=== PATIENT | male | born 1950 | race Caucasian/White ===

== ENCOUNTER 2021-12-24 06:25 | Inpatient (IN) | payer OTHER, MEDICAID ==
[~2021-12-24] VITALS: Ht 172.7 cm; Wt 77.3 kg
[2021-12-24 06:30] VITALS: BP 144/80
--- NOTE | 2021-12-24 06:30 | NUR ---
PT JP ALS. TAKEN TO BED 5
--- NOTE | 2021-12-24 06:39 | NUR ---
PT MOVED TO ER BED 1
[2021-12-24] MEDS ORDERED: methylPREDNISolone SS 125 MG/2 ML VIAL IVP ONE (06:55)
[2021-12-24] MEDS ORDERED: ALBUTEROL 0.083% 2.5 MG/3 ML NEBU INH ONE (06:55)
[2021-12-24] MEDS ORDERED: NACL 0.9% 1,000 ML IV SCH ×2 (06:55→11:40)
[2021-12-24] MEDS ORDERED: PIPERACILLIN/TAZOBACTAM 3.375 GM in DEXTROSE 5% 50 ML IV ONE (06:55)
[2021-12-24] MEDS ORDERED: IPRATROPIUM 0.02% 0.5 MG/2.5 ML NEBU INH ONE (06:55)
--- NOTE | 2021-12-24 07:27 | NUR ---
Pt report received from DARYL Martinez . Transfer of care at this time.
[2021-12-24 07:31] LABS: BASOPHILS % (AUTO) 0.2 % (0.0-2.0); EOSINOPHILS % (AUTO) 0.1 % (0.0-4.0); HEMATOCRIT 48.9 % (36-52); HEMOGLOBIN 16.2 g/dL (12.0-18.0); LYMPHOCYTES # (AUTO) 0.8 K/uL (2.0-11.5); LYMPHOCYTES % (AUTO) 3.8 % (20.5-51.1); MEAN CORPUSCULAR HEMOGLOBIN 28 pg (27-31); MEAN CORPUSCULAR HGB CONC 33 g/dL (33-37); MEAN CORPUSCULAR VOLUME 85.3 fL (80-94); MONOCYTES # (AUTO) 1.8 K/uL (0.8-1.0); MONOCYTES % (AUTO) 8.7 % (1.7-9.3); NEUTROPHILS # (AUTO) 17.8 K/uL (1.8-7.7); NEUTROPHILS % (AUTO) 87.2 % (42.2-75.2); PLATELET COUNT (AUTO) 276 K/uL (140-450); RED BLOOD CELL COUNT(AUTO) 5.73 MIL/uL (4.20-6.10); RED CELL DISTRIBUTION WIDTH 16.6 % (11.6-13.7); WHITE BLOOD COUNT (AUTO) 20.4 K/uL (4.8-10.8)
[2021-12-24] MEDS ORDERED: PIPERACILLIN/TAZOBACTAM 3.375 GM VIAL IV ONE ×2 (07:33→13:15)
[2021-12-24 07:36] LABS: ALBUMIN 2.5 g/dL (3.4-5.0); ANION GAP 6.4 (8-16); ASPARTATE AMINOTRANSFERASE 16 U/L (15-37); CARBON DIOXIDE 38.2 mmol/L (21-32); CHLORIDE 97 mmol/L (98-107); CREATININE 0.9 mg/dL (0.6-1.3); GLUCOSE 182 mg/dL (74-106); SODIUM SERUM 135 mmol/L (136-145); TOTAL BILIRUBIN 0.5 mg/dL (0.0-1.0); UREA NITROGEN, BLOOD 37 mg/dL (7-18)
--- NOTE | 2021-12-24 07:45 | NUR ---
Report given to AM shift nurse Lucinda BRITO. AM shift nurse Lucinda BRITO verbalized understanding of report, no further questions.
[2021-12-24 07:50] LABS: POTASSIUM 6.6 mmol/L (3.5-5.1)
[2021-12-24] MEDS ORDERED: ACETAMINOPHEN 650 MG/20.3 ML UDC PO ONE (07:55)
--- NOTE | 2021-12-24 07:59 | NUR ---
xray at bedside
[2021-12-24] MEDS ORDERED: SODIUM BICARBONATE 8.4% PFS 50 MEQ/50 ML SYR IVP ONE (08:10)
[2021-12-24] MEDS ORDERED: DEXTROSE 50% 50 ML SYR IVP ONE (08:10)
[2021-12-24] MEDS ORDERED: SODIUM ZIRCONIUM CYCLOSILICATE 10 GM POWD.PACK GT ONE (08:10)
[2021-12-24] MEDS ORDERED: INSULIN REGULAR, HUMAN 100 UNIT/ML VIAL IVP ONE (08:10)
[2021-12-24 08:25] LABS: PROTHROMBIN TIME 10.9 secs (10.8-13.4)
[2021-12-24 08:25] LABS: APPEARANCE,URINE CLEAR (CLEAR); BILIRUBIN,URINE NEGATIVE (NEGATIVE); BLOOD, URINE 2+ (NEGATIVE); COLOR,URINE YELLOW (YELLOW); LEUKOCYTE ESTERASE ,URINE NEGATIVE (NEGATIVE); NITRITE, URINE NEGATIVE (NEGATIVE); UGLUCOSE NEGATIVE (NEGATIVE)
--- NOTE | 2021-12-24 09:01 | NUR ---
INF SWAB WALKED TO LAB
[2021-12-24 10:16] LABS: RBC,URINE 11-20 (MOD) /HPF (0-5); WBC,URINE 0-5 /HPF (0-5)
[2021-12-24] MEDS ORDERED: ZOLPIDEM 5 MG TAB PO PRN (10:35)
[2021-12-24] MEDS ORDERED: guaiFENesin DM 200/20 MG-10 ML 10 ML UDC PO PRN (10:35)
[2021-12-24] MEDS ORDERED: POTASSIUM CHLORIDE 10 MEQ TABER PO PRN (10:35)
[2021-12-24] MEDS ORDERED: DOCUSATE SODIUM 100 MG GELCAP PO PRN (10:35)
[2021-12-24] MEDS ORDERED: ACETAMINOPHEN 325 MG TAB PO PRN (10:35)
--- NOTE | 2021-12-24 11:17 | NUR ---
PT MOVED TO ER BED 2
[2021-12-24] MEDS ORDERED: VANCOMYCIN PER PHARMACY MC PRN (11:25)
[2021-12-24] MEDS ORDERED: INTUBATION KIT MC ONE (11:30)
--- NOTE | 2021-12-24 11:30 | NUR ---
INTUBATION PERFORMED BY FOLLOWED BY BRONCHOSCOPY, SPUTUM SENT TO LAB AND ABG DONE DONE. CURRENT VENT SETTING ARE ACVC TV450, RR18, +5, 100%, ALARMS ARE SET AND AUDIBLE , WHEELS ARE LOCKED AND AMBUBAG AT BEDSIDE.
--- NOTE | 2021-12-24 11:30 | NUR ---
DR PUENTE AT BEDSIDE, DECIDED TO INTUBATE PT
[2021-12-24] MEDS ORDERED: PROPOFOL 200 MG/20 ML VIAL IV ONE (11:32)
[2021-12-24] MEDS ORDERED: PROPOFOL 1000 MG/100 ML PREMIX 100 ML IV ONE (11:34)
[2021-12-24] MEDS ORDERED: ROCURONIUM 50 MG/5 ML VIAL IV SCH (11:40)
[2021-12-24] MEDS ORDERED: ETOMIDATE 20 MG/10 ML VIAL IVP SCH (11:40)
[2021-12-24] MEDS: PROPOFOL 1000 MG/100 ML PREMIX 100 ML IV PRN (11:45)
[2021-12-24] MEDS ORDERED: CALCIUM GLUC 1 GM/50 mL NS BAG 0 ML IV ONE (11:56)
[2021-12-24] MEDS ORDERED: CALCIUM GLUCONATE 10% 1,000 MG in NACL 0.9% 50 ML IV SCH (12:00)
[2021-12-24] MEDS ORDERED: SODIUM POLYSTYRENE 15 GM/60 ML UDBTL PO SCH (12:00)
--- NOTE | 2021-12-24 12:01 | NUR ---
1137-DR PUENTE, RT AND PRIMARY NURSE AT BEDSIDE FOR INTUBATION 1138- 10MG ETOMIDATE GIVEN IVPUSH (VERIFIED BY 2ND RN) 1139-50MG ROCURONIUM GIVEN IPUSH (VERIFIED BY 2ND RN) 1140- INTUBATED- ET TUBE SIZE 8, 24" @LIP +COLOR CHANGE. RECEIVED VERBAL ORDER OF PROPOFOL AT 5MCG AND LEVO 4MG PRN
--- NOTE | 2021-12-24 12:04 | NUR ---
RAD AT BEDSIDE FOR VERIFICATION
--- NOTE | 2021-12-24 12:21 | NUR ---
LAB AT BEDSIDE
--- NOTE | 2021-12-24 12:22 | NUR ---
Pt report given to DARYL Forte. Transfer of care at this time.
--- NOTE | 2021-12-24 12:25 | NUR ---
assumed care of a 71/m. s/p intubation - vent settings as follows: ACVC [id number]/peep5. pending icu bed.
[2021-12-24] MEDS: methylPREDNISolone SS 125 MG/2 ML VIAL IVP SCH ×2 (12:41→19:31)
[2021-12-24] MEDS ORDERED: ALBUTEROL SULFATE/IPRATROPIU 3 ML SOL IH SCH (12:55)
[2021-12-24] MEDS ORDERED: NOREPINEPHRINE 4 MG in DEXTROSE 5% 250 ML IV SCH (13:05)
[2021-12-24 13:13] LABS: BASOPHILS % (AUTO) 0.1 % (0.0-2.0); HEMOGLOBIN 14.5 g/dL (12.0-18.0); LYMPHOCYTES # (AUTO) 0.6 K/uL (2.0-11.5); LYMPHOCYTES % (AUTO) 2.9 % (20.5-51.1); MEAN CORPUSCULAR HEMOGLOBIN 28 pg (27-31); MEAN CORPUSCULAR HGB CONC 32 g/dL (33-37); MEAN CORPUSCULAR VOLUME 85.9 fL (80-94); MONOCYTES # (AUTO) 1.4 K/uL (0.8-1.0); MONOCYTES % (AUTO) 6.6 % (1.7-9.3); NEUTROPHILS # (AUTO) 19.6 K/uL (1.8-7.7); NEUTROPHILS % (AUTO) 90.4 % (42.2-75.2); PLATELET COUNT (AUTO) 206 K/uL (140-450); RED BLOOD CELL COUNT(AUTO) 5.23 MIL/uL (4.20-6.10); RED CELL DISTRIBUTION WIDTH 16.1 % (11.6-13.7); WHITE BLOOD COUNT (AUTO) 21.6 K/uL (4.8-10.8)
[2021-12-24] MEDS: PIPERACILLIN/TAZOBACTAM 3.375 GM in DEXTROSE 5% 50 ML IV SCH ×2 (13:22→21:48)
[2021-12-24 13:34] LABS: PROTHROMBIN TIME 10.9 secs (10.8-13.4)
[2021-12-24] MEDS: SODIUM BICARBONATE 8.4% 150 MEQ in DEXTROSE 5% 1,000 ML IV SCH (13:39)
[2021-12-24 13:43] LABS: MAGNESIUM 2.1 mg/dL (1.8-2.4); THYROID STIMULATING HORMONE 0.76 uIU/mL (0.34-3.74)
--- NOTE | 2021-12-24 13:45 | NUR ---
at or around this time patient was transported to CT via gurney with this RN, 2 RCPs, and pavan kay. on continous cardiac monitoring.
[2021-12-24 13:48] LABS: ALBUMIN 2.1 g/dL (3.4-5.0); ANION GAP 7.6 (8-16); ASPARTATE AMINOTRANSFERASE 15 U/L (15-37); CARBON DIOXIDE 36.3 mmol/L (21-32); CHLORIDE 101 mmol/L (98-107); CREATININE 0.8 mg/dL (0.6-1.3); GLUCOSE 231 mg/dL (74-106); POTASSIUM 4.9 mmol/L (3.5-5.1); SODIUM SERUM 140 mmol/L (136-145); TOTAL BILIRUBIN 0.5 mg/dL (0.0-1.0); UREA NITROGEN, BLOOD 34 mg/dL (7-18)
--- NOTE | 2021-12-24 14:00 | NUR ---
TRANSFERRED PT TO AND FROM CT WITH NO COMPLICATIONS. HES BACK ON CURRENT VENT SETTING VC TV450,RR18,+,100%. ALARMS ARE SET AND AUDIBLE,VENT PLUGGED INTO RED OUTLET. AMBUBAG AT BEDSIDE.
--- NOTE | 2021-12-24 14:20 | NUR ---
returned from CT. reattached to bedside monitor. remains in critical condition. intubated, sedated.
--- NOTE | 2021-12-24 14:20 | NUR ---
PICC nurse at bedside.
--- NOTE | 2021-12-24 14:30 | NUR ---
repositioned in bed, pt remains intubated/sedated. no new changes in condition.
--- NOTE | 2021-12-24 15:05 | NUR ---
RT CALLED DR. HYDE, RECIEVED VERBAL ORDERS FOR DUONEB 3ML AND INCREASE THE RATE FROM 18 TO 22 AND TO GET AN ABG. WILL FOLLOW UP WITH DR HYDE ON ABG RESULTS.
--- NOTE | 2021-12-24 15:07 | NUR ---
successful PICC insertion - confirmation via xray.
[2021-12-24 15:15] VITALS: BP 104/58
--- NOTE | 2021-12-24 15:28 | NUR ---
DC PLANNIN YRS OLD MALE PATIENT WAS ADMITTED FROM [facility] WITH A DX OF SEPSIS. PATIENT HAS A HX OF COPD ,DEMENTIA HEART FAILURE DYSPHAGIA ENCEPHALOPATHY AND SCHIZOPHRENIA. INTUBATED IN THE ER ADMITTED IN ICU CXR SHOWED PULMONARY VASCULAR CONGESTION RAPID COVID TEST NEGATIVE. INFLUENZA B POSITIVE ADMINISTERED IVF, IV ABX ZOSYN AND VANCOMYCIN. CONSULTED WITH SURGEON ,PULMO, CARDIO AND ID. DC PLAN TO RETURN TO [facility] WHEN STABLE CM TO FOLLOW Addendum: 01/06/22 at 1018 by Haritha Carrillo RN DC PLANNING: PATIENT IS ACCEPTED AT [facility] CAN GO TO ROOM 222A # TO GIVE REPORT [phone] ARRANGED TRANSPORT WITH [employer] [employer] [facility] TIME 2 PM. NOTIFIED BEBE BRITO. Addendum: 01/06/22 at 1037 by Haritha Carrillo RN DC PLANNING CALLED [employer] SPOKE WITH TERESO ARRANGED TRANSPORT RES NUMBER [id number] WILL CALL BACK WITH IN 30-40 MIN TO CONFIRM TRANSPORT IF NOT PLS CALL [phone] CM TO FOLLOW Addendum: 01/06/22 at 1049 by Haritha Carrillo RN DC PLANNING: RECEIVED A CALL FROM [facility] SPOKE WITH EDITH HURD [employer] WILL VIDEO RECORDER MECHANIC PATIENT AT 2:30 PM. NOTIFIED BEBE BRITO
[2021-12-24] MEDS ORDERED: VANCOMYCIN HCL 1.25 GM in DEXTROSE 5% 250 ML IV SCH (16:00)
--- NOTE | 2021-12-24 16:10 | NUR ---
PLAY BACK OPERATOR at bedside -- vent settings changed. new vent settings as follows: [id number]/450tv/22rate/5peep. pt tolerating vent settings without incident.
--- NOTE | 2021-12-24 16:29 | NUR ---
reposistioned in bed, no acute changes in condition
--- NOTE | 2021-12-24 16:30 | NUR ---
RT FOLLOWED UP ABG RESULTS TO DR. MORRISON, VERBAL PHONE ORDER GIVEN TO INCREASE RATE TO 28 FROM 22 AND INCREASE TIDAL VOLUME FROM 450 TO 500. PT TOLERATED CHANGE WELL AND WILL OBTAIN A FOLLOW UP AGE IN MORNING.
--- NOTE | 2021-12-24 16:31 | NUR ---
all care transferred to DARYL Sarmiento.
--- NOTE | 2021-12-24 16:31 | NUR ---
REPORT RECEIVED FROM KALEN BRITO, ASSUMED CARE AT THIS TIME. PT IS TOLERATING VENT WELL AT THIS TIME. RECEIVED PT ON PROPOFOL 10MG/KG/MIN WITH THE RASS SCORE OF -3. PT ALSO HAS SODIUM BICARB RUNNING @80ML/HR WITH VANCO RUNNING. PT ON CARDIAC/OXYGEN MONITOR.
[2021-12-24 16:45] VITALS: BP 118/55
--- NOTE | 2021-12-24 17:43 | NUR ---
P.T. NOTES HOLD P.T. EVAL, Pt INTUBATED; FF UP WHEN APPROPRIATE.
--- NOTE | 2021-12-24 18:00 | NUR ---
0.83 ALBUTEROL VERBALLY CANCELLED PER VERBAL [facility], PER DR. HYDE. PT WILL CONTINUE TO RECEIVE DUONEB 3MG Q4HR PER ORDER.
--- NOTE | 2021-12-24 18:26 | NUR ---
PT SPO2 DROPPED TO 40% ON VENT. RT AT BEDSIDE. PTS MOUTH AND ET TUBE SUCTIONED AND SPO2 IMPROVED TO 100%. PT TOLERATING VENT AT THIS TIME. PT REPOSITIONED AND NEW BLANKET APPLIED.
--- NOTE | 2021-12-24 18:45 | NUR ---
ASSISTED IN TRANSPORT OF PATIENT FROM ER BED #2 TO ICU BED #8. VENTILATOR IS PLUGGED INTO RED OUTLET, 8.0 ET TUBE IS PATENT AND SECURED 24CM AT THE LIP, BMV IN ROOM. WILL CONTINUE TO MONITOR
[2021-12-24] MEDS ORDERED: MULT-1640 PO (19:12)
[2021-12-24] MEDS ORDERED: ALBU3SOL83 IH (19:12)
[2021-12-24] MEDS ORDERED: VALP-22 GT (19:12)
[2021-12-24] MEDS ORDERED: SYN.05 PO (19:12)
[2021-12-24] MEDS ORDERED: LACT10SO86 PO (19:12)
[2021-12-24] MEDS ORDERED: FURO-572 PO (19:12)
[2021-12-24] MEDS ORDERED: FAMO-90 PO (19:12)
[2021-12-24] MEDS ORDERED: SENN-74 PO (19:12)
[2021-12-24] MEDS ORDERED: CLON0.5T PO (19:12)
[2021-12-24] MEDS ORDERED: BUDE1AER IH (19:12)
[2021-12-24] MEDS ORDERED: CARV3.12 PO (19:12)
[2021-12-24] MEDS ORDERED: QUET200T PO (19:12)
[2021-12-24] MEDS ORDERED: ASCO500T95 PO (19:12)
[2021-12-24] MEDS ORDERED: QUET25TA PO (19:12)
--- NOTE | 2021-12-24 19:15 | NUR ---
REPORT GIVEN TO NARCISO BRITO, TRANSFER OF CARE AT THIS TIME.
--- NOTE | 2021-12-24 20:37 | NUR ---
TRANSFERED TO ICU 8. ATTACHED TO LAPPING MACHINE SET UP OPERATOR. ACCOMPANIED BY RT, RN, AND ERT. REPORT GIVEN TO RN
--- NOTE | 2021-12-24 20:37 | NUR ---
ADMITTED PT. FROM ER AND REPORT GIVEN BY DARYL STUART. PT. AWAKE WITH THE EYES CLOSE, RESPOND TO TACTILE STIMULI. EYES PERLL. ON ETT VENT SETTING A/C VC RATE 22, FIO2 60%, TV 500 AND PEEP 5, O2 SAT 96%. LUNGS SOUND TO BILATERAL UPPER LOBE CLEAR AND BILATERAL LOWER LOBE DIMINISHED. IV SITE, RIGHT UPPER FOREARM PICC LINE RUNNING PROPOFOL 10MCG/MIN AND SODIUM BICARB 8.4% AT 80 ML/HR (FIRST BAG). RIGHT LOWER IV 18G PERIPHERAL CAPPED AND FLUSHED. ON SINUS RHYTHM ON THE MONITOR. GT TO ABDOMINAL LEFT QUADRANT CLAMPED. ABDOMINAL SOUND HYPOACTIVE. SCHERER CATHETER PLACED IN ER, PATENT AND INTACT. URINE COLOR CLEAR, STRAW. WITH SEQUENTIAL COMPRESSION TO LOWER LEG. SKIN NOT INTACT, PICTURES TAKEN OF THE WOUNDS (PLS. SEE CHART). STARTED ON BILATERAL SOFT WRIST RESTRAINT PER MD ORDERED, SINCE PT. TRYING TO PULL OUT TUBES/LINES. REPOSITIONED AND PLACED IN COMFORTABLY. PROVIDED SAFE AND QUIET ENVIRONMENT. BEDLOCK AND PLACED BED IN THE LOWEST HEIGHT. NO S/S OF PAIN AT THIS TIME. WILL CONT. TO MONITOR.
[2021-12-24 21:00] VITALS: BP 122/60
[2021-12-24] MEDS: carvediloL 3.125 MG TAB PO SCH (21:00)
[2021-12-24] MEDS: ALBUTEROL 0.083% 2.5 MG/3 ML NEBU INH SCH ×2 (21:00→21:30)
[2021-12-24] MEDS: clonazePAM 0.5 MG TAB PO SCH (21:50)
[2021-12-24] MEDS: QUEtiapine FUMARATE 100 MG TAB PO SCH (21:52)
[2021-12-24 22:00] VITALS: BP 99/63
[2021-12-24] MEDS: OSELTAMIVIR PHOSPHATE 75 MG CAP PO SCH (22:00)
[2021-12-24 23:00] VITALS: BP 86/56
[2021-12-24] MEDS: NOREPINEPHRINE 4 MG in DEXTROSE 5% 250 ML IV PRN (23:50)
[2021-12-24] MEDS: ALBUTEROL SULFATE/IPRATROPIU 3 ML SOL IH SCH (23:56)
[2021-12-25] VITALS (28 sets, daily range): BP systolic 80–132; BP diastolic 49–79
[2021-12-25] MEDS: PROPOFOL 1000 MG/100 ML PREMIX 100 ML IV PRN (02:45)
[2021-12-25] MEDS: ALBUTEROL SULFATE/IPRATROPIU 3 ML SOL IH SCH ×4 (03:56→15:00)
[2021-12-25] MEDS: SODIUM BICARBONATE 8.4% 150 MEQ in DEXTROSE 5% 1,000 ML IV SCH (04:01)
--- NOTE | 2021-12-25 04:25 | NUR ---
LAB CAME FOR BLOOD DRAWN.
[2021-12-25] MEDS: PIPERACILLIN/TAZOBACTAM 3.375 GM in DEXTROSE 5% 50 ML IV SCH ×3 (04:40→21:37)
[2021-12-25] MEDS: methylPREDNISolone SS 125 MG/2 ML VIAL IVP SCH ×4 (06:25→17:40)
[2021-12-25] MEDS: LEVOTHYROXINE 0.05 MG TAB PO SCH (06:26)
[2021-12-25 06:53] LABS: BASOPHILS % (AUTO) 0.1 % (0.0-2.0); HEMATOCRIT 40.6 % (36-52); HEMOGLOBIN 13.4 g/dL (12.0-18.0); LYMPHOCYTES # (AUTO) 0.7 K/uL (2.0-11.5); LYMPHOCYTES % (AUTO) 4.1 % (20.5-51.1); MEAN CORPUSCULAR HEMOGLOBIN 28 pg (27-31); MEAN CORPUSCULAR HGB CONC 33 g/dL (33-37); MEAN CORPUSCULAR VOLUME 84.8 fL (80-94); MONOCYTES # (AUTO) 1.1 K/uL (0.8-1.0); MONOCYTES % (AUTO) 6.4 % (1.7-9.3); NEUTROPHILS # (AUTO) 15.8 K/uL (1.8-7.7); NEUTROPHILS % (AUTO) 89.4 % (42.2-75.2); PLATELET COUNT (AUTO) 181 K/uL (140-450); RED BLOOD CELL COUNT(AUTO) 4.78 MIL/uL (4.20-6.10); RED CELL DISTRIBUTION WIDTH 16.2 % (11.6-13.7); WHITE BLOOD COUNT (AUTO) 17.7 K/uL (4.8-10.8)
--- NOTE | 2021-12-25 07:10 | NUR ---
RECEIVED PT ON ACVC TV 500, RR22, +5, 40%. WHEELS ARE LOCKED AND PLUGGED INTO RED OUTLET, ALARMS ARE SET AND AUDIBLE, AMBUBAG AT BEDSIDE.
[2021-12-25 07:14] LABS: ANION GAP 8.9 (8-16); CARBON DIOXIDE 37.5 mmol/L (21-32); CHLORIDE 98 mmol/L (98-107); CREATININE 0.8 mg/dL (0.6-1.3); GLUCOSE 150 mg/dL (74-106); POTASSIUM 3.4 mmol/L (3.5-5.1); SODIUM SERUM 141 mmol/L (136-145); UREA NITROGEN, BLOOD 39 mg/dL (7-18)
--- NOTE | 2021-12-25 07:25 | NUR ---
ENDORSED PT. TO DAY SHIFT RN, PRESLEY. ALL QUESTIONS ANSWERED.
--- NOTE | 2021-12-25 07:30 | NUR ---
RECEIVED REPORT FROM MANAGER COMMISSION. PT IN BED WITH HOB ELEVATED. SEDATED RASS -3, ETT TO VENT AC/VC FIO2 100%, RATE 22, TV 500 PEEP 5. NO S/S OF PAIN AT THIS TIME. SINUS RHYTHM ON MONITOR. WITH ANAHI PICC RUNNING PROPOFOL AT 10MCG/KG/HR, LEVOPHED AT 2MCG, BICARB AT 80CC/HR, NS AT TKO. SCHERER CATHETER INTACT AND PATENT. GT INTACT AND PATENT, CLAMPED. FALL RISK PRECAUTIONS IN PLACE
--- NOTE | 2021-12-25 08:48 | NUR ---
PATIENT HAS BEEN SCREENED AND CATEGORIZED HIGH NUTRITION RISK. PATIENT WILL BE SEEN WITHIN 1-2 DAYS OF ADMISSION. 12/25/21-12/26/21 REVIEWED BY RENATA COYNE RD
[2021-12-25] MEDS ORDERED: PANTOPRAZOLE 40 MG TABEC PO SCH (09:00)
--- NOTE | 2021-12-25 09:15 | NUR ---
RR CHANGED FROM [address] PUENTE.
--- NOTE | 2021-12-25 09:15 | NUR ---
SEEN AND EXAMINED BY DR PUENTE
[2021-12-25] MEDS: VANCOMYCIN 1,000 MG in DEXTROSE 5% 250 ML IV SCH ×2 (09:18→21:35)
[2021-12-25] MEDS: LACTULOSE 20 GM/30 ML UDC PO SCH (09:18)
[2021-12-25] MEDS: VALPROIC ACID 250 MG/5 ML UDC GT SCH ×3 (09:19→17:39)
[2021-12-25] MEDS: OSELTAMIVIR PHOSPHATE 75 MG CAP PO SCH ×2 (09:19→21:37)
[2021-12-25] MEDS: PANTOPRAZOLE 40 MG INJ VIAL IVP SCH (09:19)
[2021-12-25] MEDS: SENNA 8.6 MG TAB PO SCH (09:19)
[2021-12-25] MEDS: clonazePAM 0.5 MG TAB PO SCH ×2 (09:20→21:48)
[2021-12-25] MEDS: FUROSEMIDE 20 MG TAB PO SCH (09:21)
[2021-12-25] MEDS: FAMOTIDINE 20 MG TAB PO SCH (09:21)
[2021-12-25] MEDS: QUEtiapine FUMARATE 25 MG TAB PO SCH (09:23)
[2021-12-25] MEDS: carvediloL 3.125 MG TAB PO SCH ×2 (09:23→21:00)
--- NOTE | 2021-12-25 09:30 | NUR ---
DUE MEDS GIVEN VIA GT, TOLERATED WELL, ORAL CARE DONE
--- NOTE | 2021-12-25 10:24 | NUR ---
WOUND CARE RE-EVALUATION NOTE: SKIN ASSESSMENT DONE WITH THIS 71 Y/O PT ADMITTED WITH INITIAL DX SOB WITH FEVER. PAST MEDICAL HISTORY OF DEMENTIA, COPD, HEART FAILURE, DYSPHAGIA, ENCEPHALOPATHY, SCHIZOPHRENIA AND SKIN SQUAMOUS CELL CARCINOMA. ALL ABOVE INFORMATION OBTAINED FROM ADMISSION H&P. PT IS INTUBATED, SKIN IS COLD AND DRY, BLE NO HAIR GROWTH, NO EDEMA. DORSAL PEDAL PULSES PRESENT AND NORMAL. CAPILLARY REFILLED <2 SEC. X 10 TOES. F/C PATENT WITH MODERATE AMOUNT BERTIN COLOR URINE OUT PUT OBSERVED. PT. ADMITTED WITH SKIN ALTERATION TO LEFT EAR AND PRESSURE INJURY TO MID BACK. PLAN OF CARE DISCUSSED WITH PRIMARY RN. COMORBIDITIES RELATED TO DELAY WOUND HEALING AND FURTHER SKIN BREAKS: BOWEL INCONTINENCE, INFECTION, DM, HEART FAILURE WITH HYPOXEMIC DECREASE TISSUE PERFUSION, DECREASE MOBILITY AND FUNCTIONAL ABILITIES, AND HOB ELEVATED THE MAJORITY OF TIMES DUE TO MEDICAL REASONS. INTEGUMENTARY: -LIPS AND ORAL MUCOSA DRY AND CLEAN. SKIN INTACT. -LEFT EAR LOCALIZED BROWN SCABS, 3X3CM , MOIST, NO DRAINAGE, NO ODOR, POSSIBLE SKIN SQUAMOUS CELL CARCINOMA. -MID BACK PRESSURE INJURY STAGE 2, 2.5X2X0.1CM, WOUND BED PINK, DRY AND NO ODOR, OLIVIA-WOUND SKIN DRY PEELING SKIN RECOMMENDATIONS: -LEFT EAR CLEANSE WITH NS, APPLY MOIST 2X2 BETADINE GAUZES AND COVER WITH ISLAND DRESSING QD AND PRN IF SOILING, OFFLOAD AREA -CLEANSE MID BACK WOUND WITH NS AND APPLY Z-GUARD COVER WITH FOAM DRESSING QD AND PRN IF SOILING -APPLY FORM DRESSING TO SACROCOCCYX Q7 DAYS AND PRN IF SOILING PREVENTION -POSITIONING: TURN AND REPOSITION PATIENT Q 2H OR SOONER USE PILLOWS TO KEEP BONY PROMINENCES FROM DIRECT CONTACT WITH SURFACES USE REPOSITIONING WEDGES TO PROVIDE 30-DEGREE ANGLE FOR SIDE LYING POSITIONS OFFLOADING OR FOAM DRESSING TO ALL TUBING TO PREVENT MEDICAL DEVICES RELATED PRESSURE INJURY -RE-EVALUATING AND MANAGING INCONTINENCE MONITOR SKIN CONDITION DURING POSITION CHANGE DO NOT MASSAGE REDNESS, BONY PROMINENCES, DO NOT USE DONUT-TYPE DEVICES FREQUENT OLIVIA-CARE AND PROVIDE BARRIER CREAMS PRN IF SOILING MOISTURE CONTROL BY OFFER BED WILDER/URINAL /ABSORBENT PAD TO WICK AND HOLD MOISTURE. KEEP SKIN DRY AND PROTECT FROM FRICTION -MANAGE FRICTION/SHEAR/MOBILITY KEEP HOB AT THE LOWEST LEVEL OF ELEVATION NO MORE THAN 30 DEGREES UNLESS OTHERWISE CONTRAINDICATED USE LIFT SHEET OR TRANSFER DEVICE TO MOVE PATIENT AND PREVENT LATERAL SHEER. CONSIDER TRAPEZE IF APPROPRIATE PROTECT HEELS, ELBOWS BONY PROMINENCES WITH SKIN BERRIES OR FOAM DRESSING IF EXPOSED TO FRICTION OFFLOAD BILATERAL HEELS BY PLACING PILLOWS UNDER CALVES AT ALL TIMES, UNLESS OTHERWISE CONTRAINDICATED -PRESSURE REDISTRIBUTION SURFACE THERAPY ROMERO ISOFLEX MATTRESS -NUTRITION: PLEASE FOLLOW RD RECOMMENDATIONS AND OFFER NUTRITION SUPPLEMENTS IF ORDERED.
--- NOTE | 2021-12-25 12:00 | NUR ---
RASS-3, NO RESPIRATORY DISTRESS, FIO2 40% ON VENT
--- NOTE | 2021-12-25 12:33 | NUR ---
PHYSICAL THERAPY NOTE: ATTEMPTED TO SEE PATIENT FOR PHYSICAL THERAPY EVALUATION HOWEVER PATIENT HAD CHANGE IN CONDITION AND IS NOW INTUBATED ICU STATUS. WILL NEED NEW ORDER WHEN PATIENT IS APPROPRIATE; CASINO FLOOR RUNNER AWARE.
[2021-12-25] MEDS: Z-GUARD PASTE TP SCH (12:41)
[2021-12-25] MEDS: FOAM DRESSING TP SCH (12:42)
[2021-12-25] MEDS: GAUZE TP SCH (12:42)
--- NOTE | 2021-12-25 14:30 | NUR ---
FLACC 0, NO SOB NOTED, WOUND CARE DONE
--- NOTE | 2021-12-25 15:05 | NUR ---
12/25/2021 RD INITIAL ASSESSMENT COMPLETED. PLEASE REFER TO NUTRITION ASSESSMENT UNDER CARE ACTIVITY FOR ESTIMATED NUTRITIONAL NEEDS. 1. RECOMMEND GLUCERNA WITH A GOAL RATE OF 60 ML/HR -START AT 10 ML/HR AND INCREASE BY 10 ML/HR Q4H TOLERATED. -FWF 250 ML Q4H 2. RECOMMEND PROSOURCE BID FOR WOUND HEALING. -WITH CONTINUOUS PROPOFOL (4.191 ML/GS=350 KCAL) AND PROSOURCE (120 KCAL ), THIS WILL PROVIDE 1958 KCAL AND 116.4 G OF PROTEIN , MEETING 82% OF ESTIMATED CALORIE NEEDS AND 97% OF PROTEIN NEEDS. 3. RD TO FOLLOW-UP IN 2-3 DAYS PATIENT IS HIGH RISK. BRADY COYNE RD
--- NOTE | 2021-12-25 15:45 | NUR ---
DC PLANNING SW OUTREACHED TO [facility] TO GATHER COLLATERAL INFORMATION. HAYLEE, [facility] DIE EQUIPMENT OPERATOR REPORTS THAT PATIENT HAS BEEN IN HALF-WAY CARE SINCE NOVEMBER 01, 2018. PATIENT IS UNDER CONSERVATORSHIP WITH [facility];SHAHANA FLORES/ MONTSERRAT FORBES [phone]. CONSERVATOR WERE MADE AWARE THAT PATIENT HAS BEEN ADMITTED TO [facility]. PATIENT IS TOTAL CARE AND IS FOLLOWED BY DR PASTRANA AT FACILITY. HAYLEE REPORTS THAT PATIENT HAS LIMITED FAMILY SUPPORT. [place] PLAN IS FOR PATIENT TO RETURN TO [facility] WHEN CLINICALLY STABLE. Addendum: 12/26/21 at 1550 by Adiel DE LOS SANTOS SHEELA WAS PROVIDED WITH COPY OF [employer] PAPERWORK VIA FAX. SHEELA PROVIDED PAPERWORK TO MEDICAL RECORDS TO UPLOAD TO PATIENT CHART.
--- NOTE | 2021-12-25 17:02 | NUR ---
TUBE FEEDING STARTED, GLUCERNA 20ML/HR WITH A GOAL OF 60ML/HR FWF 250 Q4H
[2021-12-25] MEDS: POTASSIUM CHLORIDE 20% 40 MEQ/15 ML UDC GT PRN (19:06)
[2021-12-25] MEDS: QUEtiapine FUMARATE 100 MG TAB PO SCH (21:40)
[2021-12-25] MEDS: ONDANSETRON 4 MG/2 ML VIAL IM/IVP PRN (21:55)
[2021-12-26] VITALS (27 sets, daily range): BP systolic 85–152; BP diastolic 56–87
[2021-12-26] MEDS: methylPREDNISolone SS 125 MG/2 ML VIAL IVP SCH ×3 (01:23→12:23)
[2021-12-26] MEDS: Z-GUARD PASTE TP SCH ×2 (01:23→12:25)
[2021-12-26] MEDS: ALBUTEROL SULFATE/IPRATROPIU 3 ML SOL IH SCH ×6 (05:30→23:52)
[2021-12-26 06:03] LABS: ANION GAP 6.7 (8-16); CARBON DIOXIDE 39.6 mmol/L (21-32); CHLORIDE 95 mmol/L (98-107); CREATININE 0.7 mg/dL (0.6-1.3); GLUCOSE 145 mg/dL (74-106); POTASSIUM 3.3 mmol/L (3.5-5.1); SODIUM SERUM 138 mmol/L (136-145); UREA NITROGEN, BLOOD 32 mg/dL (7-18)
[2021-12-26] MEDS: PIPERACILLIN/TAZOBACTAM 3.375 GM in DEXTROSE 5% 50 ML IV SCH ×3 (06:31→20:00)
[2021-12-26] MEDS: LEVOTHYROXINE 0.05 MG TAB PO SCH (06:32)
[2021-12-26 07:01] LABS: HEMATOCRIT 39.7 % (36-52); HEMOGLOBIN 13.2 g/dL (12.0-18.0); LYMPHOCYTES # (AUTO) 0.7 K/uL (2.0-11.5); LYMPHOCYTES % (AUTO) 4.4 % (20.5-51.1); MEAN CORPUSCULAR HEMOGLOBIN 28 pg (27-31); MEAN CORPUSCULAR HGB CONC 33 g/dL (33-37); MEAN CORPUSCULAR VOLUME 83.4 fL (80-94); MONOCYTES # (AUTO) 0.8 K/uL (0.8-1.0); MONOCYTES % (AUTO) 5.2 % (1.7-9.3); NEUTROPHILS # (AUTO) 14.4 K/uL (1.8-7.7); NEUTROPHILS % (AUTO) 90.4 % (42.2-75.2); PLATELET COUNT (AUTO) 213 K/uL (140-450); RED BLOOD CELL COUNT(AUTO) 4.77 MIL/uL (4.20-6.10); WHITE BLOOD COUNT (AUTO) 15.9 K/uL (4.8-10.8)
--- NOTE | 2021-12-26 07:15 | NUR ---
Opening Received report on pt. Pt intubated, sedated with diprivan. Pt also with bilateral wrist restraints for safety. On levophed drip. Pt receiving tube feeding at rate of 40 ml/hr. Rahman in place draining urine to gravity.
[2021-12-26] MEDS: VANCOMYCIN 1,000 MG in DEXTROSE 5% 250 ML IV SCH ×2 (09:07→20:53)
[2021-12-26] MEDS: SENNA 8.6 MG TAB PO SCH (09:08)
[2021-12-26] MEDS: PANTOPRAZOLE 40 MG INJ VIAL IVP SCH (09:08)
[2021-12-26] MEDS: carvediloL 3.125 MG TAB PO SCH ×2 (09:09→21:00)
[2021-12-26] MEDS: VALPROIC ACID 250 MG/5 ML UDC GT SCH ×3 (09:09→16:06)
[2021-12-26] MEDS: LACTULOSE 20 GM/30 ML UDC PO SCH (09:09)
[2021-12-26] MEDS: clonazePAM 0.5 MG TAB PO SCH ×2 (09:11→20:55)
[2021-12-26] MEDS: FUROSEMIDE 20 MG TAB PO SCH (09:11)
[2021-12-26] MEDS: FAMOTIDINE 20 MG TAB PO SCH (09:12)
[2021-12-26] MEDS: OSELTAMIVIR PHOSPHATE 75 MG CAP PO SCH ×2 (09:13→20:53)
[2021-12-26] MEDS: QUEtiapine FUMARATE 25 MG TAB PO SCH (09:13)
--- NOTE | 2021-12-26 10:45 | NUR ---
CPAP trial initiated by RT. Liliana leyva for trial.
[2021-12-26] MEDS: GAUZE TP SCH (12:24)
[2021-12-26] MEDS: POTASSIUM CHLORIDE 20% 40 MEQ/15 ML UDC GT PRN (12:30)
--- NOTE | 2021-12-26 12:40 | NUR ---
Restarted diprivan drip sedation
--- NOTE | 2021-12-26 12:40 | NUR ---
Vent change back to AC/VC per Dr. Barrientos request by RT.
[2021-12-26] MEDS: PROPOFOL 1000 MG/100 ML PREMIX 100 ML IV PRN (14:03)
--- NOTE | 2021-12-26 16:00 | NUR ---
Pt noted with BM, cleaned pt, administered CHG bath, wound dressing change done.
[2021-12-26] MEDS: MORPHINE SULFATE 2 MG/ML SYR IVP PRN (16:06)
[2021-12-26] MEDS: methylPREDNISolone SS 40 MG/ML VIAL IVP SCH ×2 (17:52→23:55)
--- NOTE | 2021-12-26 18:51 | NUR ---
Close/Endorsement Pt in no signs of acute pain or distress, remains sedated with diprivan and remains on levophed drip for BP support. Will endorse plan of care to oncoming RN.
--- NOTE | 2021-12-26 19:45 | NUR ---
RECEIVED BEDSIDE REPORT FROM DAY SHIFT NURSE, ASSUMED CARE. PT IN SEMI FOWLERS, SEDATED RASS -3, IN NO APPARENT ACUTE DISTRESS. ETT TO VENT ON ACVC SETTINGS, RATE 18, FIO2 35%, PEEP 5, O2 SAT 94%. G-TUBE FEEDING RUNNING GLUCERNA 1.2 AT 60 ML/HR WITH RESIDUAL OF 100 ML, PUT TUBE FEEDING ON HOLD AT THIS TIME. SCHERER CATHETER PRESENT WITH VISIBLE CLEAR YELLOW URINE DRAINING. ANAHI PICC LINE PRESENT WITH NO SIGNS OF INFECTION AROUND DRESSING SITE, RUNNING PROPOFOL AT 20 MCG/KG/MIN AND LEVOPHED AT 1 MCG/MIN. 18 G ON R FOREARM PRESENT, FLUSHED AND PATENT. SKIN NON INTACT, PLEASE SEE WOUND ASSESSMENT NOTES. PT CURRENTLY ON BILATERAL SOFT WRIST RESTRAINTS WITH NO INJURIES NOTED. ALL SAFETY MEASURES IN PLACE, WILL CONTINUE TO CLOSELY MONITOR AND FOLLOW POC.
[2021-12-26] MEDS: QUEtiapine FUMARATE 100 MG TAB PO SCH (20:53)
--- NOTE | 2021-12-26 21:00 | NUR ---
SCHEDULED MEDICATIONS ADMINISTERED, PT TOLERATED WELL IN NO APPARENT ACUTE DISTRESS. DID NOT ADMINISTERED SCHEDULED COREG DUE TO PT CURRENTLY ON LEVOPHED DRIP. ORAL VAP CARE RENDERED. WILL CONTINUE TO CLOSELY MONITOR.
[2021-12-27] VITALS (28 sets, daily range): BP systolic 94–150; BP diastolic 55–95
--- NOTE | 2021-12-27 | NUR ---
PT REPOSITIONED. PT IN NO APPARENT ACUTE DISTRESS, CONTINUES ETT TO VENT WITH FIO2 AT 35%, PROPOFOL CONTINUES INFUSING AT 20 MCG/KG/MIN AND LEVOPHED AT 1 MCG/MIN. VSS. BILATERAL SOFT WRIST RESTRAINTS PRESENT WITH NO SIGNS OF INJURY ON WRISTS OR ARMS. ALL SAFETY MEASURES IN PLACE, WILL CONTINUE TO CLOSELY MONITOR AND FOLLOW POC.
[2021-12-27] MEDS: Z-GUARD PASTE TP SCH ×2 (01:00→12:46)
[2021-12-27] MEDS: PROPOFOL 1000 MG/100 ML PREMIX 100 ML IV PRN ×3 (02:10→21:47)
--- NOTE | 2021-12-27 02:20 | NUR ---
PT IN NO ACUTE DISTRESS WITH NO SIGNS OF DISCOMFORT. RE-CHECKED G TUBE RESIDUAL WITH 0 ML, STARTED GLUCERNA TUBE FEEDING AGAIN AT 30 ML/HR, WILL CONTINUE TO MONITOR, ASSESS, AND INCREASE RATE NECESSARY.
[2021-12-27] MEDS: ALBUTEROL SULFATE/IPRATROPIU 3 ML SOL IH SCH ×6 (04:09→23:07)
--- NOTE | 2021-12-27 05:00 | NUR ---
PT IN NO ACUTE DISTRESS, REPOSITIONED AND PROVIDED COMFORT MEASURES. CONTINUES ON PROPOFOL RUNNING AT 20 MCG/KG/MIN AND LEVOPHED AT 0.5 MCG/MIN. CONTINUES ON BILATERAL SOFT WRIST RESTRAINTS WITH NO SIGNS OF INJURIES AROUND WRIST OR ARMS. ALL SAFETY MEASURES IN PLACE, WILL CONTINUE TO CLOSELY MONITOR AND FOLLOW POC.
[2021-12-27 06:07] LABS: HEMATOCRIT 40.6 % (36-52); HEMOGLOBIN 13.6 g/dL (12.0-18.0); LYMPHOCYTES # (AUTO) 0.6 K/uL (2.0-11.5); MEAN CORPUSCULAR HEMOGLOBIN 28 pg (27-31); MEAN CORPUSCULAR HGB CONC 34 g/dL (33-37); MEAN CORPUSCULAR VOLUME 83.4 fL (80-94); MONOCYTES # (AUTO) 0.4 K/uL (0.8-1.0); MONOCYTES % (AUTO) 3.3 % (1.7-9.3); NEUTROPHILS # (AUTO) 11.1 K/uL (1.8-7.7); NEUTROPHILS % (AUTO) 91.7 % (42.2-75.2); PLATELET COUNT (AUTO) 209 K/uL (140-450); RED BLOOD CELL COUNT(AUTO) 4.87 MIL/uL (4.20-6.10); RED CELL DISTRIBUTION WIDTH 16.5 % (11.6-13.7); WHITE BLOOD COUNT (AUTO) 12.1 K/uL (4.8-10.8)
[2021-12-27] MEDS: LEVOTHYROXINE 0.05 MG TAB PO SCH (06:14)
[2021-12-27] MEDS: PIPERACILLIN/TAZOBACTAM 3.375 GM in DEXTROSE 5% 50 ML IV SCH ×3 (06:15→20:20)
[2021-12-27] MEDS: methylPREDNISolone SS 40 MG/ML VIAL IVP SCH ×4 (06:15→23:53)
[2021-12-27 06:35] LABS: ANION GAP 4.3 (8-16); CARBON DIOXIDE 40.1 mmol/L (21-32); CHLORIDE 98 mmol/L (98-107); CREATININE 0.7 mg/dL (0.6-1.3); GLUCOSE 137 mg/dL (74-106); POTASSIUM 3.4 mmol/L (3.5-5.1); SODIUM SERUM 139 mmol/L (136-145); UREA NITROGEN, BLOOD 31 mg/dL (7-18)
--- NOTE | 2021-12-27 07:15 | NUR ---
PT REPORT GIVEN TO DAY SHIFT NURSE. PT IN NO ACUTE DISTRESS.
--- NOTE | 2021-12-27 07:15 | NUR ---
Received pt RASS -3, ETT to vent settings AC VC TV 500, rate 18, PEEP 5, and FiO2@35%. Sinus rhythm on monitor. G-tube intact and infusing Glucerna 1.2 @30ml/hr with free water flush 250 Q4H. Rahman catheter intact and draining to bedside drainage. PICC line on right upper arm intact and infusing Propofol @20mcg/kg/min, levophed @ 1mcg/min, and NS @TKO. Safety precautions in place.
--- NOTE | 2021-12-27 07:35 | NUR ---
Reported critical CO2 lab to Dr. Barrientos. No new orders at this time.
[2021-12-27] MEDS: SENNA 8.6 MG TAB PO SCH (08:45)
[2021-12-27] MEDS: FAMOTIDINE 20 MG TAB PO SCH (08:45)
[2021-12-27] MEDS: OSELTAMIVIR PHOSPHATE 75 MG CAP PO SCH ×2 (08:45→20:20)
[2021-12-27] MEDS: QUEtiapine FUMARATE 25 MG TAB PO SCH (08:46)
[2021-12-27] MEDS: clonazePAM 0.5 MG TAB PO SCH ×2 (08:46→20:21)
[2021-12-27] MEDS: LACTULOSE 20 GM/30 ML UDC PO SCH (08:47)
[2021-12-27] MEDS: FUROSEMIDE 20 MG TAB PO SCH (08:47)
[2021-12-27] MEDS: POTASSIUM CHLORIDE 20% 40 MEQ/15 ML UDC GT PRN (08:48)
[2021-12-27] MEDS: PANTOPRAZOLE 40 MG INJ VIAL IVP SCH (08:48)
[2021-12-27] MEDS: VALPROIC ACID 250 MG/5 ML UDC GT SCH ×3 (08:48→16:12)
[2021-12-27] MEDS: carvediloL 3.125 MG TAB PO SCH ×2 (09:00→21:00)
--- NOTE | 2021-12-27 09:14 | NUR ---
Called pharmacist Alfredo and reported Vanco trough 15.2. Per yash Fuentes to give 0900 dose of Vancocin.
[2021-12-27] MEDS: VANCOMYCIN 1,000 MG in DEXTROSE 5% 250 ML IV SCH ×2 (09:20→21:43)
--- NOTE | 2021-12-27 10:20 | NUR ---
Received report from RT Patel that patient did not tolerate CPAP trial. On CPAP for 10 minutes and back on vent settings as MD order.
--- NOTE | 2021-12-27 10:30 | NUR ---
Seen and examined by Dr. Barrientos.
[2021-12-27] MEDS: acetaZOLAMIDE sodium 500 MG VIAL IVP SCH ×2 (11:38→20:22)
[2021-12-27] MEDS: GAUZE TP SCH (12:46)
--- NOTE | 2021-12-27 15:55 | NUR ---
Seen and examined by Dr. Schwab.
--- NOTE | 2021-12-27 16:10 | NUR ---
Seen and examined by Dr. Bautista.
--- NOTE | 2021-12-27 16:48 | NUR ---
12/27/21 RD FOLLOW UP COMPLETED.PLEASE REFER TO NUTRITION ASSESSMENT UNDER CARE ACTIVITY FOR ESTIMATED NUTRITIONAL NEEDS. 1.CONTINUE GLUCERNA @ 60 ML/HR -FWF 250 ML Q4H 2.CONTINUE PROSOURCE BID TO PROMOTE WOUND HEALING. WITH CONTINUOUS PROPOFOL (8.328 ML/XK=985 KCAL) AND PROSOURCE (120 KCAL ), THIS WILL PROVIDE 2069 KCAL AND 116.4 G OF PROTEIN , MEETING 86% OF ESTIMATED CALORIE NEEDS AND 97% OF PROTEIN NEEDS; ADEQUATE. 3.RD TO FOLLOW-UP IN 3-5 DAYS PATIENT IS MODERATE RISK. BRADY COYNE RD
--- NOTE | 2021-12-27 19:15 | NUR ---
RECEIVED REPORT FROM DAY SHIFT NURSE, ASSUMED CARE. PT IN SEMI FOWLERS, SEDATED RASS -3, IN NO APPARENT ACUTE DISTRESS. ETT TO VENT ON ACVC SETTINGS, RATE 18, FIO2 35%, PEEP 5, O2 SAT 99%. G-TUBE FEEDING RUNNING GLUCERNA 1.2 AT 30 ML/HR WITH RESIDUAL OF 30 ML. SCHERER CATHETER PRESENT WITH VISIBLE CLEAR YELLOW URINE DRAINING. ANAHI PICC LINE PRESENT WITH NO SIGNS OF INFECTION AROUND DRESSING SITE, RUNNING PROPOFOL AT 20 MCG/KG/MIN AND LEVOPHED AT 1 MCG/MIN. 18 G ON R FOREARM PRESENT, FLUSHED AND PATENT. SKIN NON INTACT, PLEASE SEE WOUND ASSESSMENT NOTES. PT CURRENTLY ON BILATERAL SOFT WRIST RESTRAINTS WITH NO INJURIES NOTED. ALL SAFETY MEASURES IN PLACE, WILL CONTINUE TO CLOSELY MONITOR AND FOLLOW POC.
--- NOTE | 2021-12-27 19:22 | NUR ---
Endorsed to table games shift manager nurse Ellyn for continuity of care.
--- NOTE | 2021-12-27 20:07 | NUR ---
1845 unable to get abg. 2 rts tried.
[2021-12-27] MEDS: QUEtiapine FUMARATE 100 MG TAB PO SCH (20:22)
--- NOTE | 2021-12-27 22:51 | NUR ---
2200 ATTEMPTED ABG AGAIN. UNABLE TO GET. WILL TRY IN AM
[2021-12-28] VITALS (32 sets, daily range): BP systolic 90–132; BP diastolic 53–103
[2021-12-28] MEDS: Z-GUARD PASTE TP SCH ×2 (01:00→13:14)
--- NOTE | 2021-12-28 03:00 | NUR ---
PT CONTINUES SEDATED RASS -3, CONTINUES ON PROPOFOL AT 20 MCG/KG/MIN AND LEVOPHED AT 1 MCG/MIN IN NO APPARENT ACUTE DISTRESS. ALL SAFETY MEASURES IN PLACE, WILL CONTINUE TO CLOSELY MONITOR AND FOLLOW POC.
[2021-12-28] MEDS: ALBUTEROL SULFATE/IPRATROPIU 3 ML SOL IH SCH ×5 (03:12→22:46)
--- NOTE | 2021-12-28 04:30 | NUR ---
AM CARE PROVIDED, PT TOLERATED WELL. VAP ORAL CARE RENDERED. G TUBE RESIDUAL OF 0 ML, INCREASED GLUCERNA FEEDING TO 50 ML/HR. NUTRITIONAL SUPPLEMENT PROSOURCE ADMINISTERED PER DIETARY ORDERS. WILL CONTINUE TO CLOSELY MONITOR.
[2021-12-28] MEDS: PIPERACILLIN/TAZOBACTAM 3.375 GM in DEXTROSE 5% 50 ML IV SCH ×3 (05:09→21:35)
[2021-12-28 05:28] LABS: HEMATOCRIT 40.6 % (36-52); HEMOGLOBIN 13.4 g/dL (12.0-18.0); LYMPHOCYTES # (AUTO) 0.4 K/uL (2.0-11.5); LYMPHOCYTES % (AUTO) 4.3 % (20.5-51.1); MEAN CORPUSCULAR HEMOGLOBIN 28 pg (27-31); MEAN CORPUSCULAR HGB CONC 33 g/dL (33-37); MEAN CORPUSCULAR VOLUME 84.3 fL (80-94); MONOCYTES # (AUTO) 0.3 K/uL (0.8-1.0); MONOCYTES % (AUTO) 2.7 % (1.7-9.3); NEUTROPHILS # (AUTO) 9.7 K/uL (1.8-7.7); PLATELET COUNT (AUTO) 229 K/uL (140-450); RED BLOOD CELL COUNT(AUTO) 4.82 MIL/uL (4.20-6.10); WHITE BLOOD COUNT (AUTO) 10.4 K/uL (4.8-10.8)
[2021-12-28 05:30] LABS: ANION GAP 6.6 (8-16); CARBON DIOXIDE 36.4 mmol/L (21-32); CHLORIDE 98 mmol/L (98-107); CREATININE 0.8 mg/dL (0.6-1.3); GLUCOSE 180 mg/dL (74-106); SODIUM SERUM 138 mmol/L (136-145); UREA NITROGEN, BLOOD 34 mg/dL (7-18)
[2021-12-28] MEDS: LEVOTHYROXINE 0.05 MG TAB PO SCH (05:42)
[2021-12-28] MEDS: methylPREDNISolone SS 40 MG/ML VIAL IVP SCH ×3 (05:42→17:04)
[2021-12-28] MEDS: NOREPINEPHRINE 4 MG in DEXTROSE 5% 250 ML IV PRN (05:47)
--- NOTE | 2021-12-28 07:20 | NUR ---
RECEIVED REPORT FROM OUTDOOR ILLUMINATING ENGINEER RN NARCISO FOR CONTINUITY OF CARE. PT SEDATED ON PROPOFOL. ETT TO VENT ACVC FIO2 35%, VT 450, R 18, PEEP 5. SR ON MONITOR. ANAHI PICC INFUSING LEVO AT 1 MCG/MIN AND PROPOFOL AT 20 MCG/KG/MIN. R FA 18G IV SALINE LOCK. G TUBE IN PLACE INFUSING GLUCERNA AT 50 ML/HR WITH A GOAL OF 60. 250ML WATER FLUSH Q4H. F/C IN PLACE. GENERALIZED WEAKNESS. BILAT SOFT WRIST RESTRAINTS, NO S/S OF INJURY. RENEW AT MIDNIGHT. DROPLET PRECAUTION FOR INFLUENZA B. BED IN LOWEST POSITION, CALL LIGHT WITHIN REACH.
--- NOTE | 2021-12-28 07:26 | NUR ---
SCHEDULED ABG COMPLETED NO ADVERSE REACTIONS NOTED FOLLOWED BY [facility]
--- NOTE | 2021-12-28 07:42 | NUR ---
CALLED DR. ANNIE PADILLA AT [facility] [phone] TO REVIEW ABG SAMPLE REPORT ROBERT/EXCHANGE TO CONTACT FOREMENTIONED MD REQUIRED PATIENT INFORMATION AND CALL BACK NUMBER GIVEN
[2021-12-28] MEDS: VANCOMYCIN 1,000 MG in DEXTROSE 5% 250 ML IV SCH ×2 (08:12→21:00)
[2021-12-28] MEDS: acetaZOLAMIDE sodium 500 MG VIAL IVP SCH (08:12)
[2021-12-28] MEDS: LACTULOSE 20 GM/30 ML UDC PO SCH (08:12)
[2021-12-28] MEDS: PANTOPRAZOLE 40 MG INJ VIAL IVP SCH (08:13)
[2021-12-28] MEDS: OSELTAMIVIR PHOSPHATE 75 MG CAP PO SCH ×2 (08:13→21:37)
[2021-12-28] MEDS: FUROSEMIDE 20 MG TAB PO SCH (08:13)
[2021-12-28] MEDS: VALPROIC ACID 250 MG/5 ML UDC GT SCH ×3 (08:13→17:04)
[2021-12-28] MEDS: SENNA 8.6 MG TAB PO SCH (08:13)
[2021-12-28] MEDS: clonazePAM 0.5 MG TAB PO SCH ×2 (08:14→21:36)
[2021-12-28] MEDS: FAMOTIDINE 20 MG TAB PO SCH (08:14)
[2021-12-28] MEDS: carvediloL 3.125 MG TAB PO SCH (08:15)
[2021-12-28] MEDS: QUEtiapine FUMARATE 25 MG TAB PO SCH (08:15)
[2021-12-28] MEDS: FOAM DRESSING TP SCH (08:16)
--- NOTE | 2021-12-28 09:36 | NUR ---
SEEN AND EXAMINED BY DR. ANGULO WITH NEPHROLOGY.
--- NOTE | 2021-12-28 09:45 | NUR ---
PATIENTS MINUTE VENTILATION ALARM WAS ALARMING.THEREFORE, SUCTIONED TWICE AND LIQUID SECRETIONS WERE NOTED. BENJI OROSCO
[2021-12-28] MEDS: POTASSIUM CHLORIDE 20% 40 MEQ/15 ML UDC GT PRN (10:06)
[2021-12-28] MEDS: PROPOFOL 1000 MG/100 ML PREMIX 100 ML IV PRN ×2 (10:09→17:42)
--- NOTE | 2021-12-28 10:10 | NUR ---
K+ LEVEL 3.0, GAVE PRN K+ ELIXIR VIA G TUBE. Addendum: 12/28/21 at 1843 by Savannah Villa RN GAVE 40 MEQ ELIXIR.
--- NOTE | 2021-12-28 12:15 | NUR ---
SEEN AND EXAMINED BY DR. TORO. NO NEW ORDERS.
[2021-12-28] MEDS: GAUZE TP SCH (13:13)
--- NOTE | 2021-12-28 13:30 | NUR ---
SEEN AND EXAMINED BY DR. PADILLA. NO NEW ORDERS.
--- NOTE | 2021-12-28 13:35 | NUR ---
STABLE RESTING COMFORTABLY GOOD CHEST RISE ENDOTRACHEAL SUCTION FOR MODERATE THICK PALE YELLOW SECRETIONS AIRWAY PATENT
--- NOTE | 2021-12-28 16:45 | NUR ---
SEEN AND EXAMINED BY DR RINCON. ORDERS RECEIVED.
[2021-12-28] MEDS ORDERED: POTASSIUM CHLORIDE 10 MEQ TABER PO ONE (17:00)
--- NOTE | 2021-12-28 17:34 | NUR ---
ASSESSED G TUBE RESIDUAL, 220ML. HELD TUBE FEED FOR NOW.
[2021-12-28] MEDS ORDERED: POTASSIUM CHLORIDE 20% 40 MEQ/15 ML UDC GT ONE (17:45)
--- NOTE | 2021-12-28 17:50 | NUR ---
GAVE 40 MEQ K+ ELIXIR PER DR. RINCON ORDER, ONE TIME DOSE NOW.
--- NOTE | 2021-12-28 19:15 | NUR ---
ENDORSED REPORT TO COURT OF APPEALS JUDGE DARYL ESCOTO FOR CONTINUITY OF CARE.
--- NOTE | 2021-12-28 19:30 | NUR ---
RECEIVED REPORT FROM DAY SHIFT DARYL GHOSH. PT. NASREEN, RASS -3. ON ETT A/C VC RATE 16, FIO2 28%, TV 450 PEEP 5. SINUS RHYTHM ON THE MONITOR. IV TO RIGHT FOREARM 18G AND RIGHT UPPER FOREARM PICC LINE, NO S/S OF INFILTRATION, PATENT AND INTACT. CONT. ON PROPOFOL DRIP 25 MCG/KG/MIN AND LEVOPHED DRIP 1 MCG/MIN. CONT. ON BILATERAL SOFT WRIST RESTRAINT WITH NO S/S OF POOR CIRCULATION, NO S/S OF INJURY TO THE SITE. PT. CONT. ON FEEDING GLUCERNA 1.2 AT 50 ML/HR AND PER DAY SHIFT HELD FEEDING DUE TO GASTRIC RESIDUAL OF GREATER THAN 100. WILL CONT. TO MONITOR. REPOSITIONED PT. IN BED. PLACED IN SAFE AND QUIET ENVIRONMENT. CONT. ON DROPLET PRECAUTION DUE TO INFLUENZA B (+). WOUND TO LEFT EAR OPEN TO AIR. NO S/S OF PAIN AT THIS TIME. WILL CONT. TO MONITOR.
--- NOTE | 2021-12-28 21:30 | NUR ---
MEDICATIONS ORDERED GIVEN VIA GT. PT. GASTRIC RESIDUAL 70 ML CREAMY THICK RESIDUAL. RESUMED FEEDING GLUCERNA AT 50 ML/HR. WILL CONT. TO MONITOR.
[2021-12-28] MEDS: QUEtiapine FUMARATE 100 MG TAB PO SCH (21:37)
[2021-12-29] VITALS (32 sets, daily range): BP systolic 87–129; BP diastolic 55–74
[2021-12-29] MEDS: methylPREDNISolone SS 40 MG/ML VIAL IVP SCH ×4 (00:14→17:08)
[2021-12-29] MEDS: Z-GUARD PASTE TP SCH ×2 (01:00→12:16)
[2021-12-29] MEDS: PROPOFOL 1000 MG/100 ML PREMIX 100 ML IV PRN ×3 (02:24→21:24)
--- NOTE | 2021-12-29 04:00 | NUR ---
PT. GASTRIC RESIDUAL AT 0000, 65 ML CREAMY THICK FLUID AND 70 ML CREAMY THICK LIQUID AT THIS TIME. FEEDING GLUCERNA 50 ML INFUSING AND WILL CONT. TO MONITOR.
--- NOTE | 2021-12-29 04:20 | NUR ---
LAB CAME DRAWN CBC,BMP.
[2021-12-29 04:56] LABS: BASOPHILS % (AUTO) 0.2 % (0.0-2.0); HEMATOCRIT 39.8 % (36-52); HEMOGLOBIN 13.3 g/dL (12.0-18.0); LYMPHOCYTES # (AUTO) 0.6 K/uL (2.0-11.5); LYMPHOCYTES % (AUTO) 5.3 % (20.5-51.1); MEAN CORPUSCULAR HEMOGLOBIN 28 pg (27-31); MEAN CORPUSCULAR HGB CONC 33 g/dL (33-37); MEAN CORPUSCULAR VOLUME 83.5 fL (80-94); MONOCYTES # (AUTO) 0.6 K/uL (0.8-1.0); MONOCYTES % (AUTO) 5.9 % (1.7-9.3); NEUTROPHILS # (AUTO) 9.2 K/uL (1.8-7.7); NEUTROPHILS % (AUTO) 88.6 % (42.2-75.2); PLATELET COUNT (AUTO) 239 K/uL (140-450); RED BLOOD CELL COUNT(AUTO) 4.77 MIL/uL (4.20-6.10); RED CELL DISTRIBUTION WIDTH 16.2 % (11.6-13.7); WHITE BLOOD COUNT (AUTO) 10.4 K/uL (4.8-10.8)
[2021-12-29 04:59] LABS: ANION GAP 8.5 (8-16); CARBON DIOXIDE 32.2 mmol/L (21-32); CHLORIDE 101 mmol/L (98-107); CREATININE 0.7 mg/dL (0.6-1.3); GLUCOSE 144 mg/dL (74-106); POTASSIUM 3.7 mmol/L (3.5-5.1); SODIUM SERUM 138 mmol/L (136-145); UREA NITROGEN, BLOOD 31 mg/dL (7-18)
[2021-12-29] MEDS: PIPERACILLIN/TAZOBACTAM 3.375 GM in DEXTROSE 5% 50 ML IV SCH ×3 (05:06→21:25)
[2021-12-29] MEDS: LEVOTHYROXINE 0.05 MG TAB PO SCH (05:46)
--- NOTE | 2021-12-29 06:52 | NUR ---
CXR DONE AT THIS TIME. WILL ENDORSE TO THE NEXT SHIFT.
--- NOTE | 2021-12-29 07:15 | NUR ---
RECEIVED REPORT FROM CHIEF MEDICAL PHYSICIST DARYL ESCOTO FOR CONTINUITY OF CARE. PT SEDATED ON PROPOFOL. ETT TO VENT ACVC FIO2 35%, VT 450, R 18, PEEP 5. SR ON MONITOR, HR MID 50'S-60'S. ANAHI PICC INFUSING LEVO AT 1 MCG/MIN AND PROPOFOL AT 25 MCG/KG/MIN. R FA 18G IV SALINE LOCK, FLUSHED WITH GOOD BLOOD RETURN. G TUBE IN PLACE INFUSING GLUCERNA AT 50 ML/HR WITH A GOAL OF 60. 250ML WATER FLUSH Q4H. F/C IN PLACE, DARK BERTIN URINE. GENERALIZED WEAKNESS. BILAT SOFT WRIST RESTRAINTS, NO S/S OF INJURY. RENEW AT MIDNIGHT. DROPLET PRECAUTION FOR INFLUENZA B. BED IN LOWEST POSITION, CALL LIGHT WITHIN REACH.
--- NOTE | 2021-12-29 07:17 | NUR ---
ENDORSED PT. TO DAY SHIFT DARYL GOVEA FOR CONTINUITY OF CARE. ALL QUESTIONS ANSWERED.
[2021-12-29] MEDS: ALBUTEROL SULFATE/IPRATROPIU 3 ML SOL IH SCH ×4 (07:31→19:00)
[2021-12-29] MEDS: PANTOPRAZOLE 40 MG INJ VIAL IVP SCH (08:10)
[2021-12-29] MEDS: VANCOMYCIN 1,000 MG in DEXTROSE 5% 250 ML IV SCH (08:10)
[2021-12-29] MEDS: QUEtiapine FUMARATE 25 MG TAB PO SCH (08:11)
[2021-12-29] MEDS: VALPROIC ACID 250 MG/5 ML UDC GT SCH ×3 (08:11→17:07)
[2021-12-29] MEDS: LACTULOSE 20 GM/30 ML UDC PO SCH (08:11)
[2021-12-29] MEDS: FUROSEMIDE 20 MG TAB PO SCH (08:11)
[2021-12-29] MEDS: clonazePAM 0.5 MG TAB PO SCH ×2 (08:12→21:26)
[2021-12-29] MEDS: FAMOTIDINE 20 MG TAB PO SCH (08:13)
[2021-12-29] MEDS: OSELTAMIVIR PHOSPHATE 75 MG CAP PO SCH (08:13)
[2021-12-29] MEDS: SENNA 8.6 MG TAB PO SCH (08:13)
--- NOTE | 2021-12-29 09:35 | NUR ---
SEEN AND EXAMINED BY DR. ANGULO AT BEDSIDE. NO NEW ORDERS.
[2021-12-29] MEDS: GAUZE TP SCH (12:15)
--- NOTE | 2021-12-29 12:30 | NUR ---
TITRATED LEVO OFF. BP 109/72, MAP 88.
--- NOTE | 2021-12-29 12:51 | NUR ---
SEEN AND EXAMINED BY DR. TORO AT BEDSIDE. NO NEW ORDERS.
--- NOTE | 2021-12-29 13:02 | NUR ---
WOUND CARE DONE, UPPER BACK ISLAND DRESSING CHANGED. L EAR CLEANSED WITH IODINE AND LEFT BIOCHEMIST. PT TOLERATED WELL. TURNED AND REPOSITIONED WITH STUDENT RN.
--- NOTE | 2021-12-29 13:39 | NUR ---
SEEN AND EXAMINED BY DR. PADILLA AT BEDSIDE. ORDERS FOR CPAP TOMORROW.
--- NOTE | 2021-12-29 13:44 | NUR ---
12/29/21 RD FOLLOW UP COMPLETED PLEASE REFER TO NUTRITION ASSESSMENT UNDER CARE ACTIVITY FOR ESTIMATED NUTRITIONAL NEEDS. 1. CONTINUE GLUCERNA @ 60 ML/HR -FWF 250 ML Q4H 2. CONTINUE PROSOURCE BID TO PROMOTE WOUND HEALING. -WITH CONTINUOUS PROPOFOL (8.328 ML/KF=410 KCAL) AND PROSOURCE (120 KCAL). THIS WILL PROVIDE 2069 KCAL AND 116.4 G OF PROTEIN, MEETING 86% OF ESTIMATED CALORIE NEEDS AND 97% OF PROTEIN NEEDS; ADEQUATE. 3. RD TO FOLLOW-UP 3-5 DAYS, MODERATE RISK REVIEWED BY PATRICK MARTINEZ, KRISTEN
--- NOTE | 2021-12-29 14:05 | NUR ---
SEEN AND EXAMINED BY DR. AGARWAL AT BEDSIDE. NO NEW ORDERS.
--- NOTE | 2021-12-29 17:04 | NUR ---
TURNED AND REPOSITIONED WITH STUDENT RN. NO BM. VSS. RESTING COMFORTABLY IN BED, RESPIRATIONS EVEN AND UNLABORED.
--- NOTE | 2021-12-29 19:01 | NUR ---
ENDORSED BEDSIDE REPORT TO JEVON BRITO FOR CONTINUITY OF CARE.
--- NOTE | 2021-12-29 19:30 | NUR ---
RECEIVED REPORT FROM DAY SHIFT DARYL GHOSH. PT. NOT ALERT AND ORIENTED TO NAME, PLACE, TIME AND DATE. EYES NOT REACTIVE TO LIGHT AND ACCOMMODATION. LUNGS UPPER LOBE CLEAR AND DIMINISHED ON THE BASES. CONT. ON ETT A/C VC R 16, TV 450, FIO2 28% PEEP 5. IV TO RIGHT ARM PICC LINE, PATENT AND INTACT. INFUSING PROPOFOL DRIP AT 25 MCG/KG/MIN. SINUS RHYTHM. WITH GT FEEDING GLUCERNA 1.2 AT 50 ML/HR. SCHERER CATHETER DRAINING CLEAR YELLOW URINE. SKIN NOT INTACT, PLS. SEE WOUND ASSESSMENT. REPOSITIONED AND PLACED IN COMFORTABLY. PROVIDED SAFE AND QUIET ENVIRONMENT. ON DROPLET ISOLATION AND NO S/S OF PAIN. WILL CONT. TO MONITOR.
[2021-12-29] MEDS: QUEtiapine FUMARATE 100 MG TAB PO SCH (21:27)
[2021-12-30] VITALS (30 sets, daily range): BP systolic 92–116; BP diastolic 56–79
[2021-12-30] MEDS: methylPREDNISolone SS 40 MG/ML VIAL IVP SCH ×4 (00:41→17:03)
[2021-12-30] MEDS: Z-GUARD PASTE TP SCH ×2 (00:41→12:13)
[2021-12-30] MEDS: ALBUTEROL SULFATE/IPRATROPIU 3 ML SOL IH SCH ×6 (02:17→23:56)
[2021-12-30] MEDS: PIPERACILLIN/TAZOBACTAM 3.375 GM in DEXTROSE 5% 50 ML IV SCH ×3 (05:15→20:20)
[2021-12-30] MEDS: LEVOTHYROXINE 0.05 MG TAB PO SCH (06:03)
--- NOTE | 2021-12-30 06:25 | NUR ---
LAB CAME, DRAWN FOR BLOOD WORK AND THE CXR.
[2021-12-30 06:27] LABS: BASOPHILS % (AUTO) 0.1 % (0.0-2.0); HEMATOCRIT 39.9 % (36-52); HEMOGLOBIN 13.2 g/dL (12.0-18.0); LYMPHOCYTES # (AUTO) 0.7 K/uL (2.0-11.5); LYMPHOCYTES % (AUTO) 6.5 % (20.5-51.1); MEAN CORPUSCULAR HEMOGLOBIN 28 pg (27-31); MEAN CORPUSCULAR HGB CONC 33 g/dL (33-37); MEAN CORPUSCULAR VOLUME 83.6 fL (80-94); MONOCYTES # (AUTO) 0.7 K/uL (0.8-1.0); MONOCYTES % (AUTO) 7.1 % (1.7-9.3); NEUTROPHILS # (AUTO) 8.7 K/uL (1.8-7.7); NEUTROPHILS % (AUTO) 86.3 % (42.2-75.2); PLATELET COUNT (AUTO) 228 K/uL (140-450); RED BLOOD CELL COUNT(AUTO) 4.77 MIL/uL (4.20-6.10); RED CELL DISTRIBUTION WIDTH 16.2 % (11.6-13.7); WHITE BLOOD COUNT (AUTO) 10.1 K/uL (4.8-10.8)
[2021-12-30 06:43] LABS: ANION GAP 7.3 (8-16); CARBON DIOXIDE 34.3 mmol/L (21-32); CHLORIDE 101 mmol/L (98-107); CREATININE 0.7 mg/dL (0.6-1.3); GLUCOSE 131 mg/dL (74-106); POTASSIUM 3.6 mmol/L (3.5-5.1); SODIUM SERUM 139 mmol/L (136-145); UREA NITROGEN, BLOOD 34 mg/dL (7-18)
--- NOTE | 2021-12-30 07:10 | NUR ---
ENDORSED PT. TO DAY SHIFT, DARYL GHOSH FOR CONTINUITY OF CARE.
--- NOTE | 2021-12-30 07:15 | NUR ---
RECEIVED REPORT FROM PHYSICIAN PRACTICE CONSULTANT DARYL ESCOTO FOR CONTINUITY OF CARE. PT SEDATED ON PROPOFOL. ETT TO VENT ACVC FIO2 28%, VT 450, R 16, PEEP 5. SR ON MONITOR. ANAHI PICC INFUSING PROPOFOL AT 25 MCG/KG/MIN AND NS TKO. R FA 18G IV SALINE LOCK. G TUBE IN PLACE INFUSING GLUCERNA AT 50 ML/HR WITH A GOAL OF 60. 250ML WATER FLUSH Q4H. F/C IN PLACE, CLEAR YELLOW URINE. GENERALIZED WEAKNESS. BILAT SOFT WRIST RESTRAINTS, NO S/S OF INJURY. RENEW AT MIDNIGHT. DROPLET PRECAUTION FOR INFLUENZA B. BED IN LOWEST POSITION, CALL LIGHT WITHIN REACH.
[2021-12-30] MEDS: VALPROIC ACID 250 MG/5 ML UDC GT SCH ×3 (08:18→17:03)
[2021-12-30] MEDS: FAMOTIDINE 20 MG TAB PO SCH (08:19)
[2021-12-30] MEDS: LACTULOSE 20 GM/30 ML UDC PO SCH (08:19)
[2021-12-30] MEDS: PANTOPRAZOLE 40 MG INJ VIAL IVP SCH (08:19)
[2021-12-30] MEDS: FUROSEMIDE 20 MG TAB PO SCH (08:19)
[2021-12-30] MEDS: QUEtiapine FUMARATE 25 MG TAB PO SCH (08:19)
[2021-12-30] MEDS: clonazePAM 0.5 MG TAB PO SCH ×2 (08:20→20:20)
[2021-12-30] MEDS: SENNA 8.6 MG TAB PO SCH (08:20)
[2021-12-30] MEDS: PROPOFOL 1000 MG/100 ML PREMIX 100 ML IV PRN ×2 (08:21→19:10)
--- NOTE | 2021-12-30 08:25 | NUR ---
TUBE FEED RESIDUAL 20 ML. INCREASED FEEDING RATE TO 60 ML/HR. 250 ML FWF Q4.
--- NOTE | 2021-12-30 08:40 | NUR ---
SEEN AND EXAMINED BY DR. PADILLA, ORDERS FOR CPAP TODAY.
--- NOTE | 2021-12-30 09:30 | NUR ---
SEEN AND EXAMINED BY DR. MONTES DE OCA, NO NEW ORDERS.
--- NOTE | 2021-12-30 10:15 | NUR ---
RT AT BEDSIDE TO BEGIN CPAP TRIALS.
--- NOTE | 2021-12-30 11:36 | NUR ---
SEEN AND ASSESSED BY CORINA KELLEY. NO NEW ORDERS.
[2021-12-30] MEDS: GAUZE TP SCH (12:13)
--- NOTE | 2021-12-30 12:19 | NUR ---
TUBE FEED RESIDUAL 100 ML. CONTINUED TUBE FEED AT 60 ML/HR. GAVE PROSOURCE SUPPLEMENT.
--- NOTE | 2021-12-30 12:59 | NUR ---
PT UNABLE TO FOLLOW COMMANDS REMAINS ON SBT. NURSE AWARE.
--- NOTE | 2021-12-30 13:04 | NUR ---
PT COMPLETED 2 HOURS OF SBT TOLERATED WELL CPAP 5 PS 10 AND FIO2 28%. NURSE AWARE. PT RETURNED TO FULL SUPPORT VENTILATION. WILL CONTINUE TO MONITOR.
--- NOTE | 2021-12-30 17:05 | NUR ---
TUBE FEED RESIDUAL 100 ML. CONTINUED TUBE FEED ORDERED.
--- NOTE | 2021-12-30 19:00 | NUR ---
ENDORSED BEDSIDE REPORT TO POLICE SURGEON RN REMY FOR CONTINUITY OF CARE.
--- NOTE | 2021-12-30 19:30 | NUR ---
ASSUMED CARE OF PT.INITIAL ASSESSMENT COMPLETED. SR NOTED ON MONITOR. ETT TO VENT A/C VC MODE FIO2 28% RATE 16, PEEP 5. W/ RIGHT UPPER ARM PICC LINE, GOOD BLOOD RETURN TO BOTH PORTS. INFUSING PROPOFOL DRIP AT 25 MCG/KG/MIN. DRY WT 69.9 KG.WITH GT INTACT, 50ML RESIDUALS NOTED.ON CONTINUOUS FEEDING GLUCERNA 1.2 ORDERED.W/ SCHERER CATHETER DRAINING CLEAR YELLOW URINE,ADEQUATE AMT.ALL EXTREMITIES RIGID.FLACC 0.W/BILATERAL SOFT WRIST RESTRAINTS, NO INJURIES NOTED.FALL PRECAUTION IN PLACE.CALL LIGHT WITHIN REACH.WILL CONTINUE TO CLOSELY MONITOR PT
[2021-12-30] MEDS: QUEtiapine FUMARATE 100 MG TAB PO SCH (20:19)
--- NOTE | 2021-12-30 20:30 | NUR ---
ORAL CARE USING VAP KIT RENDERED.PT ON PROTONIX FOR GI PROPHYLAXIS AND SCD TO BLE FOR DVT PROPHYLAXIS.REPOSITIONED.
[2021-12-31] VITALS (32 sets, daily range): BP systolic 91–162; BP diastolic 55–93
--- NOTE | 2021-12-31 | NUR ---
ORAL CARE DONE.FLACC 0.REPOSITIONED.
[2021-12-31] MEDS: methylPREDNISolone SS 40 MG/ML VIAL IVP SCH ×4 (00:48→17:30)
[2021-12-31] MEDS: Z-GUARD PASTE TP SCH ×2 (00:51→13:00)
--- NOTE | 2021-12-31 02:00 | NUR ---
PTS CONDITION REMAINS UNCHANGED.STILL ETT TO VENT FIO2 28%.SECRETIONS SUCTIONED.FLACC 0.REPOSITIONED
[2021-12-31] MEDS: ALBUTEROL SULFATE/IPRATROPIU 3 ML SOL IH SCH ×5 (03:00→18:47)
--- NOTE | 2021-12-31 04:00 | NUR ---
ORAL CARE USING VAP KIT RENDERED.REPOSITIONED.FLACC 0
[2021-12-31] MEDS: PROPOFOL 1000 MG/100 ML PREMIX 100 ML IV PRN (04:15)
--- NOTE | 2021-12-31 05:00 | NUR ---
BM NOTED.MODERATE AMT OF FORMED BROWNISH STOOL NOTED.PT CLEANED.REPOSITIONED.FLACC 0
[2021-12-31] MEDS: PIPERACILLIN/TAZOBACTAM 3.375 GM in DEXTROSE 5% 50 ML IV SCH ×3 (05:01→21:13)
[2021-12-31 05:42] LABS: ANION GAP 8.2 (8-16); CARBON DIOXIDE 33.4 mmol/L (21-32); CHLORIDE 99 mmol/L (98-107); CREATININE 0.7 mg/dL (0.6-1.3); GLUCOSE 143 mg/dL (74-106); POTASSIUM 3.6 mmol/L (3.5-5.1); SODIUM SERUM 137 mmol/L (136-145); UREA NITROGEN, BLOOD 36 mg/dL (7-18)
[2021-12-31] MEDS: LEVOTHYROXINE 0.05 MG TAB PO SCH (06:05)
--- NOTE | 2021-12-31 06:27 | NUR ---
ALL DUE MEDS GIVEN.FLACC 0
[2021-12-31 06:44] LABS: BASOPHILS % (AUTO) 0.1 % (0.0-2.0); HEMATOCRIT 40.9 % (36-52); HEMOGLOBIN 13.6 g/dL (12.0-18.0); LYMPHOCYTES # (AUTO) 0.5 K/uL (2.0-11.5); LYMPHOCYTES % (AUTO) 3.8 % (20.5-51.1); MEAN CORPUSCULAR HEMOGLOBIN 28 pg (27-31); MEAN CORPUSCULAR HGB CONC 33 g/dL (33-37); MEAN CORPUSCULAR VOLUME 83.8 fL (80-94); MONOCYTES # (AUTO) 0.4 K/uL (0.8-1.0); MONOCYTES % (AUTO) 3.2 % (1.7-9.3); NEUTROPHILS # (AUTO) 11.1 K/uL (1.8-7.7); NEUTROPHILS % (AUTO) 92.9 % (42.2-75.2); PLATELET COUNT (AUTO) 251 K/uL (140-450); RED BLOOD CELL COUNT(AUTO) 4.88 MIL/uL (4.20-6.10); RED CELL DISTRIBUTION WIDTH 15.8 % (11.6-13.7)
--- NOTE | 2021-12-31 07:40 | NUR ---
CPAP/PS TRIAL WEANING DR. PADILLA (PULAR) CAME AND NOTED WEANING BEFORE (10 MINUTES DAY BEFORE YESTERDAY & 2 HOURS YESTERDAY), ORDERED TO STOP SEDATION AND DO WEANING TODAY TO EXERCISE LUNGS. 0748 HRS. PROPOFOL STOPPED AND RT PLACED PATIENT ON SBT (G.E. VENT.) +5/10 cm H20.
--- NOTE | 2021-12-31 07:45 | NUR ---
PT PLACED ON SBT CPAP 5 PS 10 FIO2 28%, BEDSIDE PT NOT READY FOR EXTUBATION DUE TO MODERATE THICK SECRETIONS. WILL CONTINUE SBT.
--- NOTE | 2021-12-31 08:00 | NUR ---
DR. MONTES DE OCA CAME AND NO ORDERS.
[2021-12-31] MEDS: VALPROIC ACID 250 MG/5 ML UDC GT SCH ×3 (08:51→17:01)
[2021-12-31] MEDS: PANTOPRAZOLE 40 MG INJ VIAL IVP SCH (08:51)
[2021-12-31] MEDS: QUEtiapine FUMARATE 25 MG TAB PO SCH (08:52)
[2021-12-31] MEDS: SENNA 8.6 MG TAB PO SCH (08:52)
[2021-12-31] MEDS: FUROSEMIDE 20 MG TAB PO SCH (08:52)
[2021-12-31] MEDS: FAMOTIDINE 20 MG TAB PO SCH (08:53)
[2021-12-31] MEDS: FOAM DRESSING TP SCH (08:53)
[2021-12-31] MEDS: LACTULOSE 20 GM/30 ML UDC PO SCH (08:53)
[2021-12-31] MEDS: clonazePAM 0.5 MG TAB PO SCH ×2 (08:54→21:09)
--- NOTE | 2021-12-31 10:00 | NUR ---
CPAP/PS OR SBT WEANING TOLERATED ABLE TO TOLERATE WEANING OF +5/10 cmH20 FOR 2 HOURS TODAY.
--- NOTE | 2021-12-31 10:40 | NUR ---
SEEN BY DR. MARTINS AT BED SIDE , PLAN TO CONTINUE HOLD DIAMOX, NO OTHER ORDER RECEIVED,
[2021-12-31] MEDS: GAUZE TP SCH (13:00)
--- NOTE | 2021-12-31 19:30 | NUR ---
REPORT GIVEN TO NIGHT DARYL MEJIA. PATIENT GIVEN PRN ACETAMINOPHEN PATIENT SQUEEZE EYES TIGHT, NOT OBEYING TO SIMPLE COMMAND OF SQUEEZE FINGERS WHEN ASKED BUT FIGHTS HARD WHEN REPOSITIONED, CLEANED STOOL, ANY PROCEDURE, & PULLS AWAY FROM RESTRAINTS. WHEN ALONE, PT. SLEEPS QUIETLY. CLEANED WOUND MID-THORACIC WITH NEW OPTIFOAM GENTLE. CPAP/PS TRIAL 2 HOURS TOLERATED TODAY. CAN RESTART PROPOFOL IF NEEDED.
--- NOTE | 2021-12-31 19:35 | NUR ---
RECEIVED REPORT FROM OFF GOING RN PT HAS HIS EYES SQUEEZED SHUT. HE'S ON THE VENTILATOR VIA ETT .MODE IS AC/VC SETTINS UVE155%.TV 450, AND PEEP5. PT IS BITING ON THE TUBE. WILL MEDICATE PT. HIS PROPOFOL IS OFF AT THIS TIME. HE HAS RFA 20 GUAGE IV WITH NS INFUSING AT A TKO RATE. HE HAS A PEG TUBE IN THE RUQ OF THE ABD INFUSING AT 60CC/HOUR AND FREE WATER 250CC Q4 HOURS
[2021-12-31] MEDS: QUEtiapine FUMARATE 100 MG TAB PO SCH (21:07)
[2021-12-31] MEDS: ONDANSETRON 4 MG/2 ML VIAL IM/IVP PRN (21:28)
[2021-12-31] MEDS: MORPHINE SULFATE 2 MG/ML SYR IVP PRN (21:29)
--- NOTE | 2021-12-31 21:30 | NUR ---
PT'S VENT IS ALARMING. SUCTIONED PT AND GIVEN ORAL CARE. PT IS BITING ON THE TUBE . PT WAS GIVEN MORPHINE 2MG AND ZOFRAN 4MG FOR A FLACC SCORE OF 6. WILL ASSESS PT IN 1 HOUR TO SEE IF IT IS EFFECTIVE.
[2022-01-01] VITALS (26 sets, daily range): BP systolic 98–132; BP diastolic 58–81
[2022-01-01] MEDS: methylPREDNISolone SS 40 MG/ML VIAL IVP SCH ×5 (00:50→23:12)
[2022-01-01] MEDS: Z-GUARD PASTE TP SCH ×3 (00:50→23:14)
[2022-01-01] MEDS: PIPERACILLIN/TAZOBACTAM 3.375 GM in DEXTROSE 5% 50 ML IV SCH ×3 (05:58→21:58)
[2022-01-01] MEDS: LEVOTHYROXINE 0.05 MG TAB PO SCH (05:59)
[2022-01-01] MEDS: ALBUTEROL SULFATE/IPRATROPIU 3 ML SOL IH SCH ×5 (08:06→23:57)
[2022-01-01] MEDS: LACTULOSE 20 GM/30 ML UDC PO SCH (09:00)
[2022-01-01] MEDS: QUEtiapine FUMARATE 25 MG TAB PO SCH (09:59)
[2022-01-01] MEDS: PANTOPRAZOLE 40 MG INJ VIAL IVP SCH (09:59)
[2022-01-01] MEDS: FUROSEMIDE 20 MG TAB PO SCH (10:00)
[2022-01-01] MEDS: SENNA 8.6 MG TAB PO SCH (10:00)
[2022-01-01] MEDS: FAMOTIDINE 20 MG TAB PO SCH (10:00)
[2022-01-01] MEDS: VALPROIC ACID 250 MG/5 ML UDC GT SCH ×3 (10:01→16:35)
[2022-01-01] MEDS: HYDROcodone/APAP 7.5/325 MG 1 TAB PO PRN (12:24)
--- NOTE | 2022-01-01 12:31 | NUR ---
DR. PADILLA CAME & SAID TO WEAN PATIENT ON CPAP/PS FOR 30 MINUTES THEN DO A BLOOD GAS & THEN INFORM HIM OF THE BLOOD GAS FOR POSSIBLE EXTUBATION.
[2022-01-01] MEDS: GAUZE TP SCH (13:00)
--- NOTE | 2022-01-01 13:50 | NUR ---
WOUND CARE RE-EVALUATION NOTE: PATIENT LYING DOWN IN BED, CONTINUES TO BE ICU STATUS. MID BACK PRESSURE ULCER STAGE II REMAINS ABOUT THE SAME, NOT WORSENING. WOUND BED PINK, DRY, NO DISCHARGE, NO ODOR. CONTINUE WITH CURRENT WOUND CARE REGIMEN. LEFT EAR LOCALIZED BROWN SCABS REMAIN THE SAME. POSSIBLE SKIN SQUAMOUS CELL CARCINOMA. NO ODOR, NO DISCHARGE. CONTINUE WITH CURRENT WOUND CARE REGIMEN.
--- NOTE | 2022-01-01 15:56 | NUR ---
EXTUBATED TUBE FEEDING STOPPED. EXTUBATED (ORAL) BY RT AROUND 1450 HRS. AND PLACED ON 6 LPM/NASAL CANNULA. KEPT ON SOFT WRIST RESTRAINTS PATIENT TRIES TO PULL ANYTHING IT CAN HOLD AND WILL FIGHT WITH MEDICAL PERSONNEL. PATIENT HAS HISTORY OF SCHIZOPHRENIA.
--- NOTE | 2022-01-01 19:10 | NUR ---
medication administered, SCANNER INOPERABLE
--- NOTE | 2022-01-01 19:46 | NUR ---
Report received from Jenn BRITO assumed pt care met him eyes open follows minimal command, answered to his name but unable incoherent at times incomprehensible verbal utterances, vitals signs stable afebrile no sign of distress noted, traces of movement in all extremities to pain, generalized edema, SR on the monitor, ongoing GI peg tube feeding tolerating well low residual, farias care done adequate urine output noted, Oxygenation 4lnc O2 sat 95% denies pain PICC line site checked dry and intact, education done but no response to understanding will continue to support and treat as per care plan.
[2022-01-01] MEDS: QUEtiapine FUMARATE 100 MG TAB PO SCH (21:58)
--- NOTE | 2022-01-01 23:07 | NUR ---
Complete bed bath with CHG farias and skin care 2 person assist because pt resistance and combative. Tolerated well vital signs stable and repositioned for comfort.
[2022-01-02] VITALS (27 sets, daily range): BP systolic 99–122; BP diastolic 54–67
[2022-01-02] MEDS: ALBUTEROL SULFATE/IPRATROPIU 3 ML SOL IH SCH ×5 (03:40→19:47)
[2022-01-02] MEDS ORDERED: LEVOTHYROXINE 0.025 MG TAB ONE (05:23)
[2022-01-02] MEDS: LEVOTHYROXINE 0.025 MG TAB PO SCH (05:25)
[2022-01-02] MEDS: PIPERACILLIN/TAZOBACTAM 3.375 GM in DEXTROSE 5% 50 ML IV SCH ×3 (05:25→20:54)
[2022-01-02] MEDS: methylPREDNISolone SS 40 MG/ML VIAL IVP SCH ×3 (05:26→17:45)
--- NOTE | 2022-01-02 07:30 | NUR ---
RECEIVED PATIENT FROM DARYL IVAN FROM NIGHT RN. OXYGEN BY NASAL CANNULA. PICC LINE DRESSING CHANGED BY DARYL IVAN. TUBE FEEDING BY PEG.
--- NOTE | 2022-01-02 07:41 | NUR ---
Change of shift report at the bedside to KARLA RN for continuity of care as at this time no changes in care plan and pt's condition
[2022-01-02] MEDS: FAMOTIDINE 20 MG TAB PO SCH (09:00)
[2022-01-02] MEDS: PANTOPRAZOLE 40 MG INJ VIAL IVP SCH (09:11)
[2022-01-02] MEDS: VALPROIC ACID 250 MG/5 ML UDC GT SCH ×3 (09:11→17:44)
[2022-01-02] MEDS: LACTULOSE 20 GM/30 ML UDC PO SCH (09:11)
[2022-01-02] MEDS: SENNA 8.6 MG TAB PO SCH (09:11)
[2022-01-02] MEDS: QUEtiapine FUMARATE 25 MG TAB PO SCH (09:12)
[2022-01-02] MEDS: FUROSEMIDE 20 MG TAB PO SCH (09:12)
[2022-01-02] MEDS: ENOXAPARIN 30 MG/0.3 ML SYR SUBQ SCH (09:18)
[2022-01-02 09:37] LABS: BASOPHILS % (AUTO) 0.2 % (0.0-2.0); EOSINOPHILS % (AUTO) 0.1 % (0.0-4.0); HEMATOCRIT 41.9 % (36-52); HEMOGLOBIN 13.9 g/dL (12.0-18.0); LYMPHOCYTES # (AUTO) 0.6 K/uL (2.0-11.5); LYMPHOCYTES % (AUTO) 4.1 % (20.5-51.1); MEAN CORPUSCULAR HEMOGLOBIN 28 pg (27-31); MEAN CORPUSCULAR HGB CONC 33 g/dL (33-37); MONOCYTES # (AUTO) 0.4 K/uL (0.8-1.0); MONOCYTES % (AUTO) 2.4 % (1.7-9.3); NEUTROPHILS # (AUTO) 13.5 K/uL (1.8-7.7); NEUTROPHILS % (AUTO) 93.2 % (42.2-75.2); PLATELET COUNT (AUTO) 228 K/uL (140-450); RED BLOOD CELL COUNT(AUTO) 4.99 MIL/uL (4.20-6.10); RED CELL DISTRIBUTION WIDTH 16.6 % (11.6-13.7); WHITE BLOOD COUNT (AUTO) 14.5 K/uL (4.8-10.8)
[2022-01-02] MEDS: HYDROcodone/APAP 7.5/325 MG 1 TAB PO PRN ×2 (09:40→17:45)
[2022-01-02 09:43] LABS: ALBUMIN 2.1 g/dL (3.4-5.0); ANION GAP 7.4 (8-16); ASPARTATE AMINOTRANSFERASE 19 U/L (15-37); CARBON DIOXIDE 33.5 mmol/L (21-32); CHLORIDE 99 mmol/L (98-107); CREATININE 0.6 mg/dL (0.6-1.3); GLUCOSE 124 mg/dL (74-106); POTASSIUM 3.9 mmol/L (3.5-5.1); SODIUM SERUM 136 mmol/L (136-145); TOTAL BILIRUBIN 0.5 mg/dL (0.0-1.0); UREA NITROGEN, BLOOD 31 mg/dL (7-18)
[2022-01-02] MEDS: GAUZE TP SCH (13:00)
[2022-01-02] MEDS: Z-GUARD PASTE TP SCH (13:00)
--- NOTE | 2022-01-02 14:30 | NUR ---
BLAYNE BARAKAT CAME NOTED MAP 75. RENEW [facility]. NO OTHER ORDERS.
--- NOTE | 2022-01-02 19:15 | NUR ---
Change of shift bedside report received from KARLA BRITO for continuity of care
[2022-01-02] MEDS: QUEtiapine FUMARATE 100 MG TAB PO SCH (20:54)
[2022-01-03] VITALS (19 sets, daily range): BP systolic 99–129; BP diastolic 57–75
[2022-01-03] MEDS: ALBUTEROL SULFATE/IPRATROPIU 3 ML SOL IH SCH ×6 (00:06→21:43)
[2022-01-03] MEDS: methylPREDNISolone SS 40 MG/ML VIAL IVP SCH ×4 (00:40→20:53)
[2022-01-03] MEDS: Z-GUARD PASTE TP SCH ×2 (00:40→12:24)
--- NOTE | 2022-01-03 02:03 | NUR ---
Complete bed bath with CHG wipes, wound care to the mid back farias care tolerated well and pt repositioned for comfort
[2022-01-03] MEDS: PIPERACILLIN/TAZOBACTAM 3.375 GM in DEXTROSE 5% 50 ML IV SCH ×3 (05:29→20:52)
[2022-01-03] MEDS: LEVOTHYROXINE 0.025 MG TAB PO SCH (05:31)
[2022-01-03 06:37] LABS: EOSINOPHILS % (AUTO) 0.1 % (0.0-4.0); HEMATOCRIT 39.8 % (36-52); HEMOGLOBIN 13.3 g/dL (12.0-18.0); LYMPHOCYTES # (AUTO) 0.5 K/uL (2.0-11.5); LYMPHOCYTES % (AUTO) 3.7 % (20.5-51.1); MEAN CORPUSCULAR HEMOGLOBIN 28 pg (27-31); MEAN CORPUSCULAR HGB CONC 33 g/dL (33-37); MONOCYTES # (AUTO) 0.4 K/uL (0.8-1.0); MONOCYTES % (AUTO) 3.1 % (1.7-9.3); NEUTROPHILS # (AUTO) 12.4 K/uL (1.8-7.7); NEUTROPHILS % (AUTO) 93.1 % (42.2-75.2); PLATELET COUNT (AUTO) 222 K/uL (140-450); RED CELL DISTRIBUTION WIDTH 16.4 % (11.6-13.7); WHITE BLOOD COUNT (AUTO) 13.4 K/uL (4.8-10.8)
[2022-01-03 06:46] LABS: ANION GAP 6.5 (8-16); CARBON DIOXIDE 34.3 mmol/L (21-32); CHLORIDE 99 mmol/L (98-107); CREATININE 0.6 mg/dL (0.6-1.3); GLUCOSE 122 mg/dL (74-106); POTASSIUM 3.8 mmol/L (3.5-5.1); SODIUM SERUM 136 mmol/L (136-145); UREA NITROGEN, BLOOD 32 mg/dL (7-18)
--- NOTE | 2022-01-03 07:15 | NUR ---
RECEIVED BEDSIDE REPORT FROM NIGHT DARYL IVAN. PT. ALOC, PERRLA, CONFUSED, NOT ABLE TO ANSWER QUESTIONS PROPERLY. VSS. SPO2 94% WITH 3L NASAL CANNULA. NO S/S OF ACUTE RESPIRATORY DISTRESS. ANAHI PICC RUNNING NS 3 ML/HR. G TUBE IN PLACE, RUNNING TUBE FEEDING GLUCERNA 60ML/HR, FWF 250ML/Q4HR. SCHERER CATH TO GRAVITY DRAINING CLEAR YELLOW URINE. DROPLET PRECAUTION FOR INFLUENZA B. MILD WEAKNESS TO LOWER EXTREMITIES, ON BEDREST. SCD TO LOWER EXTREMITIES BILATERAL. INTERMITTENTLY COMBATIVE WITH PT CARE.CALL LIGHT WITHIN REACH. BED IN LOWEST POSITION.
--- NOTE | 2022-01-03 07:25 | NUR ---
Change of shift report given to AUGIE RN for continuity of care vitals signs stable awake alert tolerating all care and tx.
[2022-01-03] MEDS: VALPROIC ACID 250 MG/5 ML UDC GT SCH ×3 (08:24→17:29)
[2022-01-03] MEDS: LACTULOSE 20 GM/30 ML UDC PO SCH (08:24)
[2022-01-03] MEDS: PANTOPRAZOLE 40 MG INJ VIAL IVP SCH (08:25)
[2022-01-03] MEDS: FUROSEMIDE 20 MG/2 ML VIAL IVP SCH (08:25)
[2022-01-03] MEDS: ENOXAPARIN 30 MG/0.3 ML SYR SUBQ SCH (08:26)
[2022-01-03] MEDS: FAMOTIDINE 20 MG TAB PO SCH (08:27)
[2022-01-03] MEDS: QUEtiapine FUMARATE 25 MG TAB PO SCH (08:27)
[2022-01-03] MEDS: SENNA 8.6 MG TAB PO SCH (08:27)
--- NOTE | 2022-01-03 09:05 | NUR ---
DR PADILLA ROUNDING AT BEDSIDE. UPDATED PT INFORMATION. DR PADILLA ORDERED DOWNGRADE PT.
[2022-01-03] MEDS: FOAM DRESSING TP SCH (09:15)
--- NOTE | 2022-01-03 11:44 | NUR ---
DR ADHIKARI ROUNDING AT BEDSIDE. UPDATED PT INFORMATION. DR ADHIKARI ORDERED VBG ON 01/04/22 AM.
--- NOTE | 2022-01-03 12:50 | NUR ---
DR DOZIER ROUNDING AT BEDSIDE. UPDATED PT INFORMATION. NO NEW ORDER.
[2022-01-03] MEDS: GAUZE TP SCH (13:32)
--- NOTE | 2022-01-03 14:07 | NUR ---
01/03/22 RD FOLLOW UP COMPLETED PLEASE REFER TO NUTRITION ASSESSMENT UNDER CARE ACTIVITY FOR ESTIMATED NUTRITIONAL NEEDS. 1. CONTINUE WITH GLUCERNA 1.2 @60 ML/HR + 250 H20 FLUSH Q4H, PROSOURCE BID, TOLERATED 2. MONITOR NUTRITION RELATED LAB VALUES AND TUBE FEEDING TOLERANCE 3. RD TO FOLLOW-UP 3-5 DAYS, MODERATE RISK REVIEWED BY ANTONIO NEGRON RD
--- NOTE | 2022-01-03 16:00 | NUR ---
ASSUMED CARE OF PATIENT FROM MAURILIO RN. REPORT RECEIVED.
--- NOTE | 2022-01-03 19:34 | NUR ---
REPORT GIVEN. PATIENT STABLE. VSS.
--- NOTE | 2022-01-03 19:48 | NUR ---
Assumed pt care bedside report received from Jenn BRITO in charge.
--- NOTE | 2022-01-03 20:50 | NUR ---
Pt awake alert restful, resistance to care
--- NOTE | 2022-01-03 20:50 | NUR ---
CONT'D Awake alert confused, moves right upper extremities, trace of movements in other extremities, oxygen 2lc nasal canulla, diminished lungs sounds O2 sat 94% no shortness of breadth noted, also HR in 60"s SR vitals signs stable afebrile, ongoing tube feeding Glucerna 1.2 @60ML/HR residual <40cc no BM, urine via farias to gravity adequate output, PICC line site dry and intact with dressing. Pt education but with attention deficit, needs reinforcement support, hourly checked for safety assist with repositioned, room close to nursing station and pt monitoring telemetry status.
[2022-01-03] MEDS: QUEtiapine FUMARATE 100 MG TAB PO SCH (20:52)
[2022-01-04] VITALS (18 sets, daily range): BP systolic 98–155; BP diastolic 57–75
[2022-01-04] MEDS: ALBUTEROL SULFATE/IPRATROPIU 3 ML SOL IH SCH ×6 (00:20→19:06)
[2022-01-04] MEDS: Z-GUARD PASTE TP SCH ×2 (01:12→13:24)
--- NOTE | 2022-01-04 04:50 | NUR ---
Complete bed bath with CHG wipes wound, maureen care, pt was defensive resisting care and combative during care
[2022-01-04] MEDS: LEVOTHYROXINE 0.025 MG TAB PO SCH (05:56)
[2022-01-04 06:24] LABS: BASOPHILS % (AUTO) 0.1 % (0.0-2.0); HEMATOCRIT 40.9 % (36-52); HEMOGLOBIN 13.6 g/dL (12.0-18.0); LYMPHOCYTES # (AUTO) 0.4 K/uL (2.0-11.5); LYMPHOCYTES % (AUTO) 2.9 % (20.5-51.1); MEAN CORPUSCULAR HEMOGLOBIN 28 pg (27-31); MEAN CORPUSCULAR HGB CONC 33 g/dL (33-37); MEAN CORPUSCULAR VOLUME 83.6 fL (80-94); MONOCYTES # (AUTO) 0.6 K/uL (0.8-1.0); MONOCYTES % (AUTO) 4.5 % (1.7-9.3); NEUTROPHILS # (AUTO) 11.5 K/uL (1.8-7.7); NEUTROPHILS % (AUTO) 92.5 % (42.2-75.2); PLATELET COUNT (AUTO) 219 K/uL (140-450); RED BLOOD CELL COUNT(AUTO) 4.89 MIL/uL (4.20-6.10); RED CELL DISTRIBUTION WIDTH 16.3 % (11.6-13.7); WHITE BLOOD COUNT (AUTO) 12.4 K/uL (4.8-10.8)
[2022-01-04 06:52] LABS: MAGNESIUM 1.8 mg/dL (1.8-2.4); PHOSPHORUS 2.5 mg/dL (2.5-4.9)
[2022-01-04 06:58] LABS: ANION GAP 6.9 (8-16); CHLORIDE 99 mmol/L (98-107); CREATININE 0.6 mg/dL (0.6-1.3); GLUCOSE 134 mg/dL (74-106); POTASSIUM 3.9 mmol/L (3.5-5.1); SODIUM SERUM 135 mmol/L (136-145); UREA NITROGEN, BLOOD 28 mg/dL (7-18)
--- NOTE | 2022-01-04 07:14 | NUR ---
Bedside SBAR change of shift report given to KARLA RN for continuity of care as at this tome no changes in care plan and condition.
--- NOTE | 2022-01-04 07:25 | NUR ---
IN PATIENTS ROOM, AMBU BAG AT BEDSIDE.
--- NOTE | 2022-01-04 07:30 | NUR ---
RECEIVED PATIENT FROM NIGHT DARYL IVAN. TUBE FEEDING. TELEMETRY STATUS. NS TKO ONLY ON RIGHT UPPER PICC LINE. NASAL CANNULA 2LPM. PT. CONFUSED.
[2022-01-04] MEDS: VALPROIC ACID 250 MG/5 ML UDC GT SCH ×3 (08:23→17:15)
[2022-01-04] MEDS: HYDROcodone/APAP 7.5/325 MG 1 TAB PO PRN (08:23)
[2022-01-04] MEDS: PANTOPRAZOLE 40 MG INJ VIAL IVP SCH (08:23)
[2022-01-04] MEDS: methylPREDNISolone SS 40 MG/ML VIAL IVP SCH ×2 (08:23→21:39)
[2022-01-04] MEDS: SENNA 8.6 MG TAB PO SCH (08:24)
[2022-01-04] MEDS: QUEtiapine FUMARATE 25 MG TAB PO SCH (08:24)
[2022-01-04] MEDS: ENOXAPARIN 30 MG/0.3 ML SYR SUBQ SCH (08:25)
[2022-01-04] MEDS: FUROSEMIDE 20 MG/2 ML VIAL IVP SCH (08:26)
[2022-01-04] MEDS: LACTULOSE 20 GM/30 ML UDC PO SCH (08:28)
[2022-01-04] MEDS: FAMOTIDINE 20 MG TAB PO SCH (09:00)
--- NOTE | 2022-01-04 10:30 | NUR ---
DR. GONGORA CAME, NO NEW ORDER. NOTED TELEMETRY STATUS.
--- NOTE | 2022-01-04 11:00 | NUR ---
DECREASE FREE WATER FLUSH DR. BENITEZ (RENAL) CAME AND NOTED FLUID STATUS, EDEMA ON UPPER EXTREMITIES. ORDERED TO DECREASE FREE WATER FLUSH FREQUENCY TO EVERY 6 HRS., SAME RATE 250 MLS. BY NASOGASTRIC TUBE. Addendum: 01/04/22 at 1143 by Agency Nurse 20, RN RN DR. BENITEZ ALSO ORDERED ACETAZOLAMIDE NOW AND BID FOR BICARBONATE
[2022-01-04] MEDS ORDERED: MAG SULF 2000 MG/WATER PREMIX 50 ML IV SCH (11:10)
--- NOTE | 2022-01-04 12:10 | NUR ---
A CERTAIN PATRICK BARRAGAN, ADMISSION COORDINATOR FROM [facility] [phone] CALLED UP AND SAID THAT THE PATIENT WILL GO TO THEM.
[2022-01-04] MEDS: GAUZE TP SCH (13:23)
[2022-01-04] MEDS ORDERED: PRED10TA5 PO (13:31)
[2022-01-04] MEDS ORDERED: acetaZOLAMIDE sodium 500 MG VIAL IVP SCH (14:40)
--- NOTE | 2022-01-04 14:52 | NUR ---
MESSAGED MD BLAYNE DOZIER ABOUT LEFT EAR LOOKS LIKE HAS DISCHARGE. PT. COMBATIVE WITH RT EVEN BREATHING TREATMENT NOT GIVEN YET, EVEN JUST FIXING THE O2 CANNULA WHICH HAS FALLEN OFF FROM CONTINUOUS CHEWING MOVEMENTS, PT.GETS ANGRY & COMBATIVE. Addendum: 01/04/22 at 1525 by Agency Nurse 20, RN RN DR. DOZIER ORDERED TRIPLE ANTIBIOTIC OINTMENT TOPICAL TO LEFT EAR, TWICE A DAY. HALDOL 5 MG IM X 1 FOR COMBATIVE, AGITATION.
[2022-01-04] MEDS: acetaZOLAMIDE sodium 500 MG VIAL IVP SCH ×2 (15:06→21:40)
[2022-01-04] MEDS: NEOMYCIN/POLYMYXIN/BACITRACIN 0.9 GM/1 PKT TP SCH ×2 (15:20→21:46)
[2022-01-04] MEDS ORDERED: HALOPERIDOL IM 5 MG/ML VIAL IM SCH (15:26)
--- NOTE | 2022-01-04 19:15 | NUR ---
REPORT GIVEN TO GEEK SQUAD AGENT DARYL MEJIA. PATIENT IS TELEMETRY STATUS, DISCHARGE. FREE WATER FLUSH 250 MLS. Q 6 HOURS NOW. CHG BATH DONE, CHANGED ALL BEDSHEETS, SHEETS, PAD, GOWN. FEET ON TOP OF PILLOW WITH HEEL PROTECTORS PT. LEGS ARE STIFF, MORE STIFF WITH RESISTANCE. PT. NOW HAS CALMED DOWN AFTER HALOPERIDOL 5 MG I.MUSCULAR X 1.
--- NOTE | 2022-01-04 19:20 | NUR ---
RECEIVED REPORT FROM BENITO, PT IS IN STATED CONDITION. HE REMAINS VERBALLY COMBATIVE BUT NOT STRIKING OU WITH HIS FIST. HE'S NO LONGER INTUBATED. PT HAS GOOD PULSES THROUGHOUT. AND HE'S ON 2L O2 VIA NC. PT HAS A NGT IN HIS L NARE AND HIS FEEDING JENS GULCERNA 1.2 AT 60CC PER HOUR. HE'S ON 250 H20 Q6 HOUR BUT THE PUMP MALFUNCTION AT Q4 HOURS. HE HAS A ANAHI PICC LINE IT'S PATENT. HE HAS A SCHERER CATH AND VOIDE 2900 CC TODAY. PT IS PREPARING TO MOVE TO THE TELEMETRY UNIT. MEDS GIVEN FOR 2100.
[2022-01-04] MEDS: QUEtiapine FUMARATE 100 MG TAB PO SCH (21:39)
--- NOTE | 2022-01-04 22:54 | NUR ---
REPORT GIVEN TO ADRIEN AND I ENDORSED TO HIM THE NEED FOR NEOSPORIN ON THE LEFT EAR NON AVAIALBLE IN THE ICU. PT PREPARE FOR TRANSFER.
--- NOTE | 2022-01-04 22:56 | NUR ---
PT GOING TO ROOM 118.
--- NOTE | 2022-01-04 23:16 | NUR ---
PT TRANSFERRED VIA SLAT BASKET MAKER HELPER MONIQUE BRITO.MED SENT WITH PT.
--- NOTE | 2022-01-04 23:17 | NUR ---
PT TRANSFERRED FROM ICU TO [facility] ROOM 118. PT RESTING ON BED, CONFUSED. ON 2 L O2 VIA NC, BREATHING EQUAL AND UNLABORED. NO DISTRESS NOTED. GTUBE IN PLACE, ANAHI PICC SALINE LOCKED, PT ALSO HAS A SCHERER DRAINING CLEAR YELLOW URINE. VITAL SIGNS STABLE.ALL SAFETY PRECAUTIONS IN PLACE.. WILL CONTINUE TO MONITOR.
[2022-01-05] MEDS: ALBUTEROL SULFATE/IPRATROPIU 3 ML SOL IH SCH ×7 (00:11→23:00)
[2022-01-05] MEDS: Z-GUARD PASTE TP SCH ×2 (01:42→14:00)
[2022-01-05 04:00] VITALS: BP 107/60
--- NOTE | 2022-01-05 04:10 | NUR ---
VITAL SIGNS TAKEN AND STABLE. NO COMPLAINS OF PAIN AT THIS MOMENT. NO S/SX OF DISTRESS NOTED. ALL PRECAUTIONS IN PLACE.WILL CONTINUE TO MONITOR.
[2022-01-05] MEDS: LEVOTHYROXINE 0.025 MG TAB PO SCH (06:43)
--- NOTE | 2022-01-05 07:01 | NUR ---
PT IS STABLE. NO ACUTE THROUGHOUT THE NIGHT.NO S/SX OF DISTRESS NOTED. ALL NEEDS MET.NO COMPLAINS OF PAIN AT THIS TIME. ALL PRECAUTIONS IN PLACE. CALL LIGHT WITHIN REACH. WILL ENDORSE TO AM SHIFT NURSE.
--- NOTE | 2022-01-05 07:45 | NUR ---
RECEIVED REPORT FROM THE NIGHT NURSE , PT IS SLEEPING NO SOB, LOOKS COMFORTABLE.[id number]
--- NOTE | 2022-01-05 07:46 | NUR ---
RECEIVED REPORT FROM THE NIGHT NURSE , PT IN TRACK VENT, PPN INFUSING. PT IS NON VERBAL BUT AWAKE [id number]
[2022-01-05 08:00] VITALS: BP 109/61
[2022-01-05] MEDS: VALPROIC ACID 250 MG/5 ML UDC GT SCH ×3 (08:24→19:00)
[2022-01-05] MEDS: PANTOPRAZOLE 40 MG INJ VIAL IVP SCH (08:26)
[2022-01-05] MEDS: LACTULOSE 20 GM/30 ML UDC PO SCH (08:26)
[2022-01-05] MEDS: methylPREDNISolone SS 40 MG/ML VIAL IVP SCH ×2 (08:26→21:39)
[2022-01-05] MEDS: FAMOTIDINE 20 MG TAB PO SCH (08:27)
[2022-01-05] MEDS: SENNA 8.6 MG TAB PO SCH (08:27)
[2022-01-05] MEDS: QUEtiapine FUMARATE 25 MG TAB PO SCH (08:27)
[2022-01-05] MEDS: FUROSEMIDE 20 MG/2 ML VIAL IVP SCH (08:28)
[2022-01-05] MEDS: NEOMYCIN/POLYMYXIN/BACITRACIN 0.9 GM/1 PKT TP SCH ×2 (08:29→21:42)
[2022-01-05] MEDS: ENOXAPARIN 30 MG/0.3 ML SYR SUBQ SCH (08:34)
[2022-01-05] MEDS: acetaZOLAMIDE sodium 500 MG VIAL IVP SCH ×2 (11:51→21:39)
[2022-01-05 12:00] VITALS: BP 121/70
[2022-01-05] MEDS: GAUZE TP SCH (13:00)
[2022-01-05 16:00] VITALS: BP 130/75
--- NOTE | 2022-01-05 17:00 | NUR ---
GIVEN VIPORIC ACID ORDERED AT 1700 [id number]
--- NOTE | 2022-01-05 19:30 | NUR ---
RECEIVED REPORT FROM DAY RN FOR CONTINUITY OF CARE. PT RESTING ON BED, COMBATIVE, DOESN'T WANT TO BE TOUCHED. ROOM AIR NOW, BREATHING EQUAL AND UNLABORED. NO DISTRESS NOTED. GTUBE IN PLACE, ANAHI PICC SALINE LOCKED, PT ALSO HAS A SCHERER DRAINING CLEAR YELLOW URINE. VITAL SIGNS STABLE.ALL SAFETY PRECAUTIONS IN PLACE.. WILL CONTINUE TO MONITOR.
--- NOTE | 2022-01-05 19:41 | NUR ---
HHN TX NOT GIVEN DUE TO PT BEING COMBATIVE
[2022-01-05 20:00] VITALS: BP 121/69
--- NOTE | 2022-01-05 21:00 | NUR ---
SCHEDULED MEDICATIONS GIVEN. PT TOLERATED WELL. TUBE FEEDING CHANGED. PT TOLERATED WELL. WILL CONTINUE TO MONITOR.
[2022-01-05] MEDS: QUEtiapine FUMARATE 100 MG TAB PO SCH (21:42)
[2022-01-06] VITALS: BP 123/67
--- NOTE | 2022-01-06 | NUR ---
VITAL SIGNS STABLE. NO COMPLAINS OF PAIN AT THIS MOMENT. NO S/SX OF DISTRESS NOTED. ALL PRECAUTIONS IN PLACE.WILL CONTINUE TO MONITOR.
[2022-01-06] MEDS: Z-GUARD PASTE TP SCH ×2 (01:00→13:23)
[2022-01-06] MEDS: ALBUTEROL SULFATE/IPRATROPIU 3 ML SOL IH SCH ×3 (03:00→11:00)
--- NOTE | 2022-01-06 03:05 | NUR ---
PT ASLEEP. O2 SAT AT 96% ON ROOM AIR. NO DISTRESS NOTED. ALL PRECAUTIONS IN PLACE. WILL CONTINUE TO MONITOR.
[2022-01-06 04:00] VITALS: BP 125/68
[2022-01-06] MEDS: ONDANSETRON 4 MG/2 ML VIAL IM/IVP PRN (04:15)
[2022-01-06] MEDS: LEVOTHYROXINE 0.025 MG TAB PO SCH (06:18)
--- NOTE | 2022-01-06 07:29 | NUR ---
GOT REPORT FROM THE NIGHT NURSE, PT IS AWAKE, YELLING NO SOB, FEEDING IS INFUSING. [id number]
[2022-01-06 08:00] VITALS: BP 132/72
[2022-01-06] MEDS: PANTOPRAZOLE 40 MG INJ VIAL IVP SCH (08:59)
[2022-01-06] MEDS: FUROSEMIDE 20 MG/2 ML VIAL IVP SCH (09:00)
[2022-01-06] MEDS: methylPREDNISolone SS 40 MG/ML VIAL IVP SCH (09:00)
[2022-01-06] MEDS ORDERED: QUEtiapine FUMARATE 25 MG TAB PO SCH (09:00)
[2022-01-06] MEDS: FAMOTIDINE 20 MG TAB PO SCH (09:01)
[2022-01-06] MEDS: NEOMYCIN/POLYMYXIN/BACITRACIN 0.9 GM/1 PKT TP SCH (09:04)
[2022-01-06] MEDS: VALPROIC ACID 250 MG/5 ML UDC GT SCH ×3 (09:05→12:58)
[2022-01-06] MEDS: LACTULOSE 20 GM/30 ML UDC PO SCH (09:05)
[2022-01-06] MEDS: ENOXAPARIN 30 MG/0.3 ML SYR SUBQ SCH (09:07)
[2022-01-06] MEDS: SENNA 8.6 MG TAB PO SCH (09:10)
[2022-01-06] MEDS: FOAM DRESSING TP SCH (10:34)
[2022-01-06 12:00] VITALS: BP 128/70
[2022-01-06] MEDS: GAUZE TP SCH (13:22)
--- NOTE | 2022-01-06 14:53 | NUR ---
PT DISCHARGED, DISCHARGE PAPER GIVEN. TAKEN OUT ID BAND AND PICC LINE FROM R UPPER ARM. FOLY CATH REMOVED PICTURE OF THE WOUND TAKEN.[id number]
--- NOTE | 2022-01-06 15:37 | NUR ---
PHYSICAL THERAPY CO-SIGN The Physical Therapy Progress Notes documented by Leather Belt Loop Cutter have been reviewed. Reviewed/Co-Signed by: Leigh Ann Isaacs Documentation Done by:PREMA CUI PTA Addendum: 01/06/22 at 1538 by Leigh Ann Isaacs PT Amended: Links added.
== END 2022-01-06 14:45 | DRG 870 ==
LOC: MED 06:25 → MIC 10:37 → MTU 11:42 → MIC 17:39 → MTU 01-04 23:22
PROVIDERS: ADMIT Student in an Organized Health Care Education/Training Program; ATTEND Student in an Organized Health Care Education/Training Program
PROC: 02HV33Z Insertion of Infusion Device into Superior Vena Cava, Percutaneous Approach (ICD-10-PCS; 2021-12-24)
PROC: B548ZZA Ultrasonography of Superior Vena Cava, Guidance (ICD-10-PCS; 2021-12-24)
PROC: 5A1955Z Respiratory Ventilation, Greater than 96 Consecutive Hours (ICD-10-PCS; principal; 2021-12-25)
PROC: 0BH17EZ Insertion of Endotracheal Airway into Trachea, Via Natural or Artificial Opening (ICD-10-PCS; 2021-12-25)
PROC: 0B9L8ZX Drainage of Left Lung, Via Natural or Artificial Opening Endoscopic, Diagnostic (ICD-10-PCS; 2021-12-25)
DX: A41.9 Sepsis, unspecified organism (principal); E43 Unspecified severe protein-calorie malnutrition; J18.9 Pneumonia, unspecified organism; R65.21 Severe sepsis with septic shock; J96.21 Acute and chronic respiratory failure with hypoxia; J96.22 Acute and chronic respiratory failure with hypercapnia; E87.2 Acidosis; G93.49 Other encephalopathy; E87.1 Hypo-osmolality and hyponatremia; J44.0 Chronic obstructive pulmonary disease with (acute) lower respiratory infection; J10.1 Influenza due to other identified influenza virus with other respiratory manifestations; F03.90 Unspecified dementia, unspecified severity, without behavioral disturbance, psychotic disturbance, mood disturbance, and anxiety; F20.9 Schizophrenia, unspecified; E87.5 Hyperkalemia; F01.50 Vascular dementia, unspecified severity, without behavioral disturbance, psychotic disturbance, mood disturbance, and anxiety; E87.6 Hypokalemia; G40.909 Epilepsy, unspecified, not intractable, without status epilepticus; E78.5 Hyperlipidemia, unspecified; R13.10 Dysphagia, unspecified; E03.9 Hypothyroidism, unspecified; K21.9 Gastro-esophageal reflux disease without esophagitis; E11.9 Type 2 diabetes mellitus without complications; I11.0 Hypertensive heart disease with heart failure; I50.9 Heart failure, unspecified; Z93.1 Gastrostomy status; Z85.828 Personal history of other malignant neoplasm of skin; Z79.899 Other long term (current) drug therapy
CPT/HCPCS: 31500; 36415; 36600; 71045; 71250; 80048; 80053; 80202; 81001; 81003; 82150; 82803; 83605; 83690; 83735; 83880; 84100; 84443; 84484; 85025; 85610; 85730; 87040; 87070; 87081; 87086; 87205; 89220; 93005; 94002; 94003; 94640; 96361; 96365; 96374; 97110; 97112; 97530; 99291; A4649; C9113; J0610; J1120; J1630; J1650; J1815; J1940; J2270; J2405; J2543; J2704; J2920; J2930; J3370; J3475; J3490; J7030; J7060; J7613; J7644; Q0092